=== PATIENT | male | born 1935 | race Caucasian/White ===

== ENCOUNTER 2016-07-09 11:34 | Inpatient (IN) | payer MEDICARE ==
[~2016-07-09] VITALS: Ht 176.5 cm; Wt 71.6 kg
[2016-07-09] VITALS (8 sets, daily range): BP systolic 95–127; BP diastolic 52–66; PULSE 62–80; RESP 16–20; O2SAT 92–96
[~2016-07-09 11:34] MED LIST: AMLO10TA3 PO; ASPI-973 PO; ATOR80TA77 PO; CALCIT PO; CHOL400T PO; CLOP75TA28 PO; FAMO20TA4 PO; MULT-1093 PO; NITR0.4T SL; NITR1PAT65 TRANSDERM; RANO500T3 PO; [UNRECOGNIZED DRUG - CODE] PO
--- NOTE | 2016-07-09 11:44 | ED.REPORT ---
HPI-Chest Pain 40 and Over Date of Service Jul 09, 2016 ED Provider: Michael Michaels MD Pt is an 80 y/o male w/ a hx of CAD s/p CABG, HTN, hyperlipidemia, cardiac, pulmonary, and renal amyloidosis, CLL in remission, presenting to the ED via EMS with his from [facility] with concern for STEMI. The patient had a stent placed in late May of last year and last night was experiencing some chest pain which was relieved mildly after 5 rounds of nitro. He experienced similar chest pain again this morning which did not resolve with nitro and decided to be seen at [facility]. The ER physician there noticed EKG abnormalities concerning for STEMI and elected to have him transferred here. Of note, the physician at [facility] did not have access to a more recent EKG for comparison which I was able to obtain that showed evidence of a LBBB which is similar to today's EKG. They were comparing to an EKG from 2009 and I was able to compare to a May 2016 EKG. The patient is asymptomatic and not experiencing any chest pain at time of interview. Nursing Notes Stated Complaint: STEMI Chief Complaint: Chest Pain Nursing Notes Reviewed: Yes Allergies: Uncoded Allergies: abalone (fish) (Allergy, Intermediate, Nausea,Vomiting,Diarrhea, 12/02/15) Scheduled Amlodipine (Amlodipine) 10 Mg Tablet 10 MG PO DAILY Aspirin (Aspirin) 81 Mg Tablet 81 MG PO DAILY Atorvastatin Calcium (Atorvastatin Calcium) 80 Mg Tablet 80 MG PO DAILY Calcium Citrate (Calcium Citrate) 250 Mg Tablet 250 MG PO BID Cholecalciferol (Vitamin D3) (Vitamin D3) 400 Unit Tablet 400 UNIT PO BID Clopidogrel (Clopidogrel) 75 Mg Tablet 75 MG PO DAILY Famotidine (Famotidine) 20 Mg Tablet 20 MG PO HS Magnesium Oxide (Uromag) 84.5 Mg Capsule 84.5 MG PO DAILY Multivitamin-Min/Iron/FA/Vit K (Multi-Day Plus Minerals Tablet) 18 Mg Iron-400 Mcg-25 Mcg Tablet 1 EACH PO DAILY Nitroglycerin 0.6 mg/hr Patch (Nitroglycerin 0.6 mg/hr Patch) 1 Each Patch 1 PATCH TRANSDERM DAILY Ranolazine ER (Ranexa) 500 Mg Tablet.er 500 MG PO BID Scheduled PRN Nitroglycerin SL (Nitrostat) 0.4 Mg Tab.subl 0.4 MG SL DIRECTED PRN PRN For Chest Pain General Time Seen by MD: 11:39 Chief Complaint Chest pain Hx Obtained From: Patient, Spouse, EMS Arrived By: Ambulance Sudden in Onset?: Yes Onset Occurred: 9 - 12 hours ago Symptom Duration: Intermittent Location: : Substernal Quality: Painful Severity: Current: No pain currently Severity: Maximum: Moderate Recent Healthcare: Recent testing, Previous diagnosis, Previous surgery, Prior workup Similar Sx Previous: Yes Risk Factors )( CAD Risk Stratification Hyperlipidemia Hypertension Known CADNo Amphetamine, No Cocaine, No Diabetes mellitus, No Smoking Risk factors reviewed Past Medical History Past Medical History CAD s/p CABG HTN Hyperlipidemia Cardiac, pulmonary, and renal amyloidosis CLL in remission Mild dementia Aortic stenosis TIA Hx DVT LLE s/p IVC filter Cataracts Denies: Diabetes mellitus Past Surgical History CABG IVC filter Back Cataracts Smoking History Never Smoker Social History Alcohol Use: Denies alcohol use Drug Use: Denies drug use Other Social History: Ambulatory Status Independent Review of Systems Constitutional: Denies: Chills, Fever Respiratory: Denies: Non-productive cough, Shortness of breath Cardiovascular: Reports: Chest pain, Denies: Edema GI: Denies: Abdominal pain, Diarrhea, Nausea, Vomiting Neurologic: Denies: Headache Complete sys rev & neg: except as marked. Physical Exam Initial Vital Signs Vital Signs (First) Date Time Temp Pulse Resp B/P Pulse Ox O2 Delivery O2 Flow Rate FiO2 07/09/16 11:36 36.7 71 16 105/56 95 Room Air Initial VS: Reviewed, Vital signs normal Head / Eyes: Atraumatic, Normocephalic, PERRL ENT: Mucous membranes moist, Conjunctiva normal, No scleral icterus Neck: Supple, Full range of motion Extremities: Vascular intact, Neuro intact, No swelling, No tenderness Skin: Warm, Dry, No cyanosis Neurologic: Alert, Oriented, Nonfocal Psychiatric: Mood/affect normal, Behavior normal, Normal thought content General/Constitutional: Awake, Alert, No acute distress, Well appearing, Cooperative, Not toxic appearing Respiratory / Chest: Atraumatic, Breath sounds NL, Breath sounds = bilat, No respiratory distress, No rales, No rhonchi, No wheezing, No retractions, No stridor, No chest tenderness, No chest wall deformity, No crepitus Cardiovascular: Heart rate NL, Regular rhythm, Heart sounds NL, No gallop, No murmurs, No rubs, Cap refill not delayed, Peripheral circulation NL Abdomen: Atraumatic, Soft, Non-tender, No guarding, No rebound, No distention, No palpable mass Interpretation & Diagnostics Lab Results Interpretation Test 07/09/16 11:12 Magnesium Level 1.8mg/dL (1.6-2.6) Troponin T < 0.010ug/L (0.0-0.011) Lab Results Interpretation: Labs from [facility] taken today: WBC: 4.3 HGB: 13.9 HCT: 41.1 MCV:93.4 Platelets: 136 Neutrophil %: 76.1 ABS neut #: 3300 Lymphocytes: 12.7% Monocytes: 9.9 Eosinophils: 0.8 Basophils: 0.5 Pro-time: 11.7 INR: 1.0 BNP: 517 Troponin T: 0.0100 Alk phosph: 132 Total bilirubin: 1.0 BUN: 25.0 Creatinine: 1.30 eGFR: 56.3 Calcium: 9.4 Glucose: 113 Total protein: 7.1 Albumin: 4.3 Globulin: 2.8 AST: 31 ALT: 27 Sodium: 140 Potassium: 4.0 Chloride: 101.0 CO2: 24.0 ECG Interpretation ECG Interpretation: Sinus arrhythmia rate 74 LBBB 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 No significant change in left basilar pleural-parenchymal opacity compared to 04/30/13, consistent with benign etiology. Dictated by Danni Alcala MD. View: Portable, 1 view Interpretation / Wet Read by: Interpret - Radiologist Re-Eval/Medical Decision Time of Eval: 12:37 Patient Status: Condition resolved, Complete relief, Pain resolved Re-Evaluation/Progress Note: Pt rechecked. Pt informed of need for admission for further evaluation. Pt understands and agrees with plan for admission. All questions addressed. Consultation #1: Referral / Consult Name: Pippa Perez MD Consulted With: Cardiology Call Returned at: 11:20 Drum Sprayer: Agrees with eval, Agrees with plan Note: After review of today's EKG and prior EKG, does not believe this to be a STEMI. Consultation #2: Referral / Consult Name: Perry López MD Consulted With: Cardiology Call Returned at: 12:38 Drum Sprayer: Will see patient, Agrees with eval, Agrees with plan Note: Case discussed. Recommends standard treatment. He will see the patient tomorrow. Consultation #3: Referral / Consult Name: Aldair Marr MD Consulted With: Hospitalist Call Returned at: 12:47 Drum Sprayer: Will see patient, Agrees with eval, Agrees with plan, Accepts admit Note: Case discussed. Counseled Regarding: Diagnosis, Lab results, Need for admission Discharge & Departure Primary Impression: Chest pain Chest pain type: unspecified Qualified Code: R07.9 - Chest pain, unspecified Additional Impression: Unstable angina Disposition: ADMITTED TO HOSPITAL Discharge Condition All VS Reviewed: Yes Condition: Stable Referrals: Surjit Duque MD (PCP) Crit Care Except Billable Proc Services Performed: Patient management by me, Time spent at bedside, Reviewing test results, Reviewing imaging, Discussing patient care, Documentation in record, Time with fam/surrogate Critical Care Notes: EKG/chart review and discussion with STEMI doc prior to patient's arrival. Heparin drip. [place] Attestation Portions of this note were transcribed by Lobito Beaulieu. I, Dr. Michaels personally performed the history, physical exam and medical decision-making; I reviewed and confirmed the accuracy of the information in the transcribed note. Signed by Jacki Drake, 07/09/16 - [id number] copies to: Surjit Duque MD, Kirk H MD Jul 09, 2016 11:44 LOBITO BEAULIEU Jul 09, 2016 11:55
[2016-07-09] MEDS ORDERED: Heparin 5,000 Unit/mL Inj IVPUSH PRN ×2 (11:50→14:25)
[2016-07-09] MEDS ORDERED: Heparin 25K Unit/500mL 0.45 NS 25,000 UNIT in IV Premix 1 EACH IV SCH ×2 (11:50→14:25)
[2016-07-09] MEDS ORDERED: Heparin 5,000 Unit/mL Inj IVPUSH ONE (11:50)
[2016-07-09 12:43] LABS: Magnesium 1.8 mg/dL (1.6-2.6)
[2016-07-09 12:44] LABS: TROPONIN T < 0.010 ug/L (0.0-0.011)
[2016-07-09] MEDS ORDERED: Alum-Mag Hydrox-Simeth 30 mL Suspension PO PRN ×2 (12:55→14:25)
[2016-07-09] MEDS ORDERED: Ondansetron 2 mg/mL 2 mL Inj IVPUSH PRN ×2 (12:55→14:25)
[2016-07-09] MEDS: Nitroglycerin 50 mg/250 mL D5W 50,000 MCG in IV Premix 1 EACH IV SCH (14:20)
[2016-07-09] MEDS ORDERED: Senna-Docusate 8.6-50 mg Tablet PO PRN (14:25)
[2016-07-09] MEDS ORDERED: Polyethylene Glycol (PEG) 17 Gm Powder PO PRN (14:25)
--- NOTE | 2016-07-09 15:23 | PCM.HPMED ---
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 The patient was transferred to [facility] ED due to concern about possible STEMI. The patient notes that he began having dull 6/10 substernal constant chest pain last night that was relieved by 5 rounds of nitroglycerin. However this morning his pain returned and would not improve with nitroglycerin. The patient has a pretty significant history of angina and has become somewhat nitroglycerin tolerant. The patient denies any shortness of breath, diaphoresis or radiation but he did note some nausea. The patient was started on a nitroglycerin drip and quickly became chest pain free and is currently not in any discomfort. His EKG at [facility] revealed LBBB which was thought to be new, however in reviewing more current EKGs from 2016 it is, in fact, old. The patient's cardiac history is complex and includes an acute inferior myocardial infarction in 2003 that was treated with thrombolytic therapy, angioplasty, and stenting to his right coronary artery. Subsequently in 2008 he again presented with recurrent anginal symptoms and subsequently underwent three-vessel coronary bypass graft surgery in [place] with an internal mammary bypass graft to the LAD and a radial artery graft to the obtuse marginal. Most recently on 06/07/16 the patient had a stent placed in the circumflex. In our ED the vitals were T 36.7 HR 71 BP 105/56 RR 16 O2 sat 95% on RA. Dr. Ramsey was contacted that did not believe the EKG changes were acute and did not reflect a STEMI. Dr. López was contacted as well by the ED physician and agrees to the see that patient tomorrow. Patient arrived to the floor with a nitroglycerin drip and heparin drip. PCP: Dr. Brown Review of Systems: A comprehensive review of systems was done and was negative except as noted above in the HPI. Allergies Coded Allergies: No Known Drug Allergies (Verified Allergy, Unknown, 07/10/16) Uncoded Allergies: ABALONE (Allergy, Mild, NAUSEA/VOMITING TO THIS FISH, 07/09/16) Home Medications Amlodipine (Amlodipine) 10 Mg Tablet 10 MG PO DAILY Aspirin (Aspirin) 81 Mg Tablet 81 MG PO DAILY Atorvastatin Calcium (Atorvastatin Calcium) 80 Mg Tablet 80 MG PO DAILY Calcium Citrate (Calcium Citrate) 250 Mg Tablet 250 MG PO BID Cholecalciferol (Vitamin D3) (Vitamin D3) 400 Unit Tablet 400 UNIT PO BID Clopidogrel (Clopidogrel) 75 Mg Tablet 75 MG PO DAILY Famotidine (Famotidine) 20 Mg Tablet 20 MG PO HS Magnesium Oxide (Uromag) 84.5 Mg Capsule 84.5 MG PO DAILY Multivitamin-Min/Iron/FA/Vit K (Multi-Day Plus Minerals Tablet) 18 Mg Iron-400 Mcg-25 Mcg Tablet 1 EACH PO DAILY Nitroglycerin 0.6 mg/hr Patch (Nitroglycerin 0.6 mg/hr Patch) 1 Each Patch 1 PATCH TRANSDERM DAILY Ranolazine ER (Ranexa) 500 Mg Tablet.er 500 MG PO BID As needed Nitroglycerin SL (Nitrostat) 0.4 Mg Tab.subl 0.4 MG SL DIRECTED PRN PRN For Chest Pain PMH CAD s/p 3 vessel CABG HTN Hyperlipidemia Cardiac, pulmonary, and renal amyloidosis CLL in remission Mild dementia Aortic stenosis TIA Hx DVT LLE s/p IVC filter Cataracts Surgical History CABG IVC filter placement Back surgery Cataract surgery Family History No family history of amyloidosis or heart disease. Mother had pancreatic cancer. Father had degenerative joint disease, hypertension Social History Hx Alcohol Use: No (Rare to none) Hx Substance Use: No Hx Tobacco Use: No Smoking Status: Never Smoker Additional Information Lives with his . Uses a walker sometimes. Exam Vital Signs Vital Sign - Last Date Time Temp Pulse Resp B/P Pulse Ox O2 Delivery O2 Flow Rate FiO2 07/09/16 13:19 70 07/09/16 13:09 36.6 19 113/63 96 Room Air Exam General: No acute distress, well developed, well nourished, appropriately interactive HEENT: Normocephalic, atraumatic. External ears without defect. Hearing aids in place. Pupils equal, round, and reactive to light and accommodation. Anicteric sclerae, moist conjunctivae, and no lid lag. Oropharynx free of erythema and cobble stoning with moist mucosa. Neck: Supple with full range of motion. No jugular venous distension. No bruits. No lymphadenopathy or thyromegaly. Cardiovascular: Regular rate and rhythm with no rubs, or gallops appreciated. A 2/5 holosystolic murmur is appreciated best at the left sternal border. Radial pulses intact bilaterally. Pulmonary: Clear to auscultation bilaterally with no crackles, wheezes, or rhonchi. Normal respiratory effort with no use of accessory muscles. Abdomen: Bowel tones present. Tympanic, distended, non-tender. No hepatosplenomegaly or masses appreciated but difficult to assess. Extremities: No clubbing, cyanosis, edema, or lymphadenopathy appreciated. Skin: Normal temperature, turgor, and texture; no rash, ulcers, or subcutaneous nodules appreciated. Neurological: Cranial nerves grossly intact. Normal muscle strength, tone, and bulk. Reflexes, coordination, and sensory function within normal limits. No known gait impairment. Psychiatric: Normal mood and affect. Alert and oriented to person, place, and time. Lab and Diagnostics Labs Laboratory Tests Test 07/09/16 11:12 Magnesium Level 1.8mg/dL (1.6-2.6) Troponin T < 0.010ug/L (0.0-0.011) Labs from [facility] taken today: WBC: 4.3 HGB: 13.9 HCT: 41.1 MCV:93.4 Platelets: 136 Neutrophil %: 76.1 ABS neut #: 3300 Lymphocytes: 12.7% Monocytes: 9.9 Eosinophils: 0.8 Basophils: 0.5 Pro-time: 11.7 INR: 1.0 BNP: 517 Troponin T: 0.0100 Alk phosph: 132 Total bilirubin: 1.0 BUN: 25.0 Creatinine: 1.30 eGFR: 56.3 Calcium: 9.4 Glucose: 113 Total protein: 7.1 Albumin: 4.3 Globulin: 2.8 AST: 31 ALT: 27 Sodium: 140 Potassium: 4.0 Chloride: 101.0 CO2: 24.0 Cardiac Echo Impressions Interpretation Summary Left ventricular systolic function is normal without focal wall motion abnormalities with the ejection fraction visually estimated to be 60-65%. The previously seen inferoposterior hypokinesis is no longer evident, and compared to the prior exam, left ventricular function is borderline improved. There is mild concentric left ventricular hypertrophy with an E/A wave ratio > 2.0 that could be indicative of reduced atrial contractility or increased preload, possibly higher compared to the previous study. Clinical correlation is necessary. The right ventricle is borderline dilated and right ventricular systolic function is borderline reduced but likely unchanged compared to the previous study. Pulmonary artery pressures cannot be estimated because of the lack of a measurable TR jet velocity but the IVC suggests a right atrial pressure of 8 mm Hg, which is likely higher compared to the previous study. The left atrium is severely dilated and the right atrium is mildly dilated. Both atria have mildly increased in size since the prior echo exam. There is moderate mitral regurgitation and mild tricuspid regurgitation that are both unchanged compared to the previous study. The aortic valve is moderately calcified with moderately reduced leaflet mobility and likely moderate to severe aortic stenosis. The peak aortic velocity is 3.2 m/sec with an aortic valve mean gradient of 26 mmHg which are somewhat higher compared to the previous study although visually there in no apparent change. The calculated aortic valve area is 0.8 cm2 with moderate aortic regurgitation that is unchanged compared to the previous study. 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 1. 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 López consulted by the ED and agrees to the patient tomorrow in AM -Continue heparin drip -Titrate down nitroglycerin drip -Patient just had an ECHO in May of 2016, so will not elect to repeat it unless requested so by cardiology -Will hold off on any stress testing -Continue home aspirin, statin, clopidogrel -Add low dose metoprolol -No ACEi due to borderline BP and no evidence of HFrEF -Will continue to trend cardiac enzymes -EKG in AM 2. Coronary artery disease, chronic, present on admission, active -As above 3. Cardiac, renal and pulmonary amyloidosis, chronic, present on admission, active -Patient is followed by Dr. Dawn in [facility] -Currently not under treatment 4. CLL in remission -Patient is followed by Dr. Dawn in [facility] -Currently not under treatment 5. Hypertension, chronic, present on admission, active -Hold amlodipine with borderline low blood pressures 6. Hyperlipidemia, chronic, present on admission, active -Statin as above 7. Mild dementia, chronic, present on admission, active -Fall risk, nursing to monitor 8. Aortic stenosis, chronic, present on admission, active -Not critical, outpatient follow up 9. History of left lower extremity DVT s/p IVC filter -Not anticoagulated CODE STATUS: DNR/DNI per discussion with patient's and the patient. Admitted to observation status with anticipated length of stay <2 midnights due to severity of the patient's symptoms and possibility for complication. Attending Statement The patient was seen and examined together with Dr. Apple on 07/09/2016 and I agree with the history, exam and plan as outlined in the note above. . copies to: Surjit Duque MD, Viktoriya DO Jul 09, 2016 15:23 Aldair Marr MD Jul 14, 2016 16:28
[2016-07-09] MEDS: Sodium Chloride LOK Flush 10 mL Syringe IVFLUSH SCH ×2 (16:30→23:29)
[2016-07-09] MEDS: Ranolazine ER 500 mg ER12 Tablet PO SCH ×2 (17:12→20:07)
--- NOTE | 2016-07-09 18:07 | CONS ---
[address] [address] CONSULTATION REPORT PATIENT: TRE VERA : 1935 MR#: [id number] ADMIT: 07/09/2016 JOB ID: [id number] DATE OF SERVICE: 07/09/2016 REASON FOR CONSULT: For the evaluation of chest pain. CHIEF COMPLAINT: Chest pain. PRESENT HISTORY: This 80-year-old, pleasant, male who has a complex cardiac history which includes three-vessel bypass surgery in July 2008 (STUART graft to LAD, in fact, it is a large diagonal branch, sequential radial graft to OM one and posterolateral branch, history of multiple PCI, history of recent drug-coated stent placement to mid circumflex) by Dr. Hayward on June 07, 2016, with patent STUART graft as well as radial graft and proximal right coronary artery stent, moderate aortic stenosis with calculated aortic valve area about 1.2 cm without any significant pulmonary hypertension, on the right side heart catheterization, LVEDP about 16 mmHg, history of cardiac, renal, pulmonary amyloidosis, history of chemotherapy in the past, history of CLL in remission, chronic recurrent nocturnal anginal pain, history of essential hypertension, hyperlipidemia, dementia, history of TIA, history of DVT, IVC filter in the left lower extremity, history of left bundle-branch block got admitted because of above-mentioned chief complaint. The patient was recently seen by his physicist cryogenics, Dr. Bailey, around last week. He used to take Ranexa for anginal pain. It was advised him to decrease the Ranexa. He started taking from 500 mg twice a day to 500 mg daily. After recent stent placement, he was almost chest pain-free for a week, but then he started having chest pain again. Usually, he gets nocturnal pain which has been happening for many years. He has been given PPI in the past as well. He takes nitroglycerin almost every day in the nighttime and it was unusually successful, but yesterday when he had the pain he has to take five nitroglycerin. Then, he fell into sleep. It was retrosternal pressure-type discomfort. He did not have any radiation. No significant nausea, vomiting, sweating. This morning, again he had similar pain. He took nitroglycerin which did not help. Hence, decided to be seen in the hospital. He was evaluated at [facility]. They did the EKG and had left bundle-branch block. They thought the left bundle-branch block is new, hence, he was transferred to our facility with possibility of ST-elevation myocardial infarction, however, in the ED determined that his left bundle-branch block is old. He was on nitroglycerin drip. His chest pain subsided. At present, he is on 5 mcg nitroglycerin. He is chest pain-free. At present, denies any fever, cough, expectoration, stroke-like symptoms, PND orthopnea. Denies any groin bleed. On June 07, 2016, the patient underwent right and left heart catheterization as his stress test was abnormal and he was having recurrent anginal pain. On left heart catheterization, his STUART graft to LAD and sequential radial graft was patent. Proximal RCA stent was patent. There was about 80% disease in the circumflex obtuse marginal branch which got stented with 3.5 x 12 mm Xience drug-coated stent. Calculated aortic valve area was about 1.2 cm2. LVEDP was about 16 mmHg. Pulmonary artery systolic pressure was about 33 mmHg. Cardiac index 2.5 L and cardiac output 4.6 L/minute. He had an echocardiogram on May 31, 2016. At that time, LV ejection fraction was 60% to 65%. Right ventricular function was borderline reduced. There was [id number] mild tricuspid regurgitation. Peak aortic valve velocity 3.2 m/sec and mean gradient about 26 mmHg. PAST MEDICAL HISTORY: CAD details, as stated above, history of moderate aortic stenosis, essential hypertension, hyperlipidemia, cardiac pulmonary diseases and amyloidosis, CLL in remission, dementia, moderate aortic stenosis, history of DVT status post IVC filter in the left lower extremity, cataracts. In his history it was mentioned that he has paroxysmal atrial fibrillation and used to be on warfarin, but lately he is not on anticoagulation. I do not have the details at present. PAST SURGICAL HISTORY: As stated above. ALLERGIES: As per the medical records. HOME MEDICATIONS: 1. Amlodipine 10 mg daily. 2. Ranexa 500 mg daily. 3. Aspirin 81 mg daily. 4. Plavix 75 mg daily. 5. Atorvastatin 80 mg daily. 6. Calcium. 7. Magnesium. 8. Multivitamins. SOCIAL HISTORY: Denies any current tobacco abuse or alcohol abuse. FAMILY HISTORY: Positive for hypertension, degenerative joint disease, pancreatic cancer. REVIEW OF SYSTEMS: A 10 point review of systems were obtained and they are negative except as stated above. PHYSICAL EXAMINATION: Blood pressure 113/63, respiratory rate 19, pulse 69, oxygen saturation 96%. HEENT: No significant anemia, jaundice. Neck: No apparent JVP. I do not appreciate any significant carotid bruit other than radiation of aortic stenosis murmur towards left carotid. Chest: Decreased air entry with some basilar crepitations on the right side. CVS: Clinically S1 normal, P2 paradoxically split. No S3, no S4. Grade 2 to 3/6 ejection systolic murmur at the base. Abdomen: No obvious pulsatile mass felt. It is not tender. Extremities: No significant pedal edema. Vascular: No evidence of critical limb ischemia. CARBOY FILLER: At present, he is alert and oriented to time, place, and person, however, has dementia as well. Able to move all the four extremities. EKG revealed sinus rhythm with underlying left bundle-branch block which is old without any new significant ST-T changes and first-degree AV block which is old. QTc 479 msec. His magnesium 1.8. Troponin less than 0.010. At [facility], hemoglobin 13.9, platelets 136, troponin T 0.010. BUN 25, creatinine 1.3. AST, ALT normal. Sodium 140, potassium 4.0, BNP 517, INR 1.0. ASSESSMENT AND PLAN: Episode of chest pain with anginal components. The patient has history of chronic intermittent angina for many years. Recently, he underwent left circumflex artery stenting by Dr. Hayward on June 07, 2016. Mostly, his angina is nocturnal. There is an element of microvascular angina on top of epicardial coronary artery disease. The patient may have subendocardial ischemia angina due to moderate aortic stenosis as well as diastolic dysfunction due to cardiac amyloidosis. His two sets of troponin normal. He has an old left bundle-branch block. Clinically, at present he appears compensated. He is chest pain-free. At this point of time, will recommend continuation of heparin and get serial CPK, troponin. We will continue aspirin, Plavix, high intensity statin, optimize beta brooklynn. He used to take Ranexa 500 mg twice a day which has been decreased. I will put him back on Ranexa 500 mg twice a day. If blood pressure permits, consider a calcium channel brooklynn which he was taking at home. Slowly wean him off from nitroglycerin drip. Once he is off nitroglycerin drip, consider long-acting nitroglycerin. We will repeat echocardiogram. If there is no significant new wall motion abnormalities, then one of the options is to treat him with medical management. It is reasonable to consider perfusion study as well. Tomorrow my associate, Dr. Boyce, will be available to see the patient. Thanks for the cardiology consult. Discussed the plan with the patient. TOTAL TIME SPENT: About 80 minutes reviewing his old charts as well. TOMAS
[2016-07-09 19:02] LABS: Creatine Kinase 57 U/L (21-232); Magnesium 1.9 mg/dL (1.6-2.6)
[2016-07-09 19:22] LABS: TROPONIN T 0.039 ug/L (0.0-0.011)
[2016-07-10] VITALS (33 sets, daily range): BP systolic 91–129; BP diastolic 42–76; PULSE 55–80; RESP 16–20; O2SAT 92–96
[2016-07-10 03:49] LABS: APPEARANCE,URINE CLEAR (CLEAR,HAZY); COLOR,URINE YELLOW (YELLOW); OCCULT BLOOD,URINE SMALL (NEGATIVE); PH,URINE 5.5 (5.0-8.0); UROBILINOGEN,URINE NORMAL (NORMAL)
[2016-07-10 06:02] LABS: BASOPHILS % (AUTO) 0 % (0-3); EOSINOPHILS % (AUTO) 1.3 % (0-5); MONOCYTES % (AUTO) 9.6 % (4-12); Mean Corpuscular Hemoglobin 32.1 pg (27.0-35.0); Mean Corpuscular Volume 93.5 fL (81-100); Platelet Count 127 bil/L (150-400)
[2016-07-10 06:30] LABS: Creatine Kinase 58 U/L (21-232)
[2016-07-10 06:46] LABS: TROPONIN T 0.058 ug/L (0.0-0.011)
[2016-07-10] MEDS: Sodium Chloride LOK Flush 10 mL Syringe IVFLUSH SCH ×2 (08:16→16:30)
[2016-07-10] MEDS: Ranolazine ER 500 mg ER12 Tablet PO SCH ×2 (08:17→23:36)
[2016-07-10] MEDS ORDERED: ACET500C11 PO (10:01)
[2016-07-10] MEDS: Nitroglycerin 50 mg/250 mL D5W 50,000 MCG in IV Premix 1 EACH IV SCH (14:20)
--- NOTE | 2016-07-10 14:37 | DRSVH ---
Merged With [facility] [address] [place] [address] Echocardiogram Report Name: TRE VERA EStudy Date : 07/10/2016 Height: 69 in Hospital Exam Location: [facility] Weight: 159 lb Gender: Male BSA: 1.9 m2 : 1935 Age: 80 yrs BP: 112/76 mmHg Reason For Study: CHEST PAIN Ordering Physician: Perry López Performed By: Maureen Stephens Referring Physician: DR. SOSA, DR. Catalino FRASER, [facility] Interpretation Summary 1. Normal left ventricular size with moderately increased wall thickness and overall preserved LV systolic function. 2. Normal right ventricular size with low normal systolic function Procedure: This is a limited echocardiogram to evaluate ventricular function. The study quality was technically good. Comparison is made with the echocardiogram of 05-31-2016. The patient was in a bradycardic rhythm during the exam. The heart rate ranged between 55-60 bpm during the study. Left Ventricle: The left ventricle is normal in size. Left ventricular wall thickness is moderately increased. The ejection fraction is estimated to be 55-60%. Possible hypokinesis of the mid inferolateral wall. Right Ventricle: The right ventricle is normal size. Right ventricular systolic function is borderline reduced. Mitral Valve: Not assessed. Pericardium/ Pleura There is no pericardial effusion. MMode/2D Measurements & Calculations LVIDd EDV(MOD-sp2) LV palafox. diameter/BSA LV sys. diameter/BSA : 4.5 cm : 105.5 ml (cm/m^2): 2.4 (cm/m^2): 1.7 LVIDs : 3.2 cm FS: 29.2 % IVSd : 1.cm LVPWd : 1.4 cm Doppler Measurements & Calculations MV E max anjana MV E/A MV V2 mean MV P1/2t max anjana : 120.3 cm/sec : 1.9 : 63.4 cm/sec MV A max anjana MV mean PG : 64.0 cm/sec MVA(P1/2t): 1.9 cm2 MV P1/2t: 115.4 msec MV V2 VTI: 40.3 cm Reading Physician:02:36 PM
[2016-07-10] MEDS ORDERED: Furosemide 10 mg/mL 2 mL Inj ONE (15:55)
[2016-07-10 15:57] LABS: TROPONIN T 0.04 ug/L (0.0-0.011)
[2016-07-10] MEDS ORDERED: Heparin 1,000 Unit/mL 10 mL Inj ONE ×2 (15:57→16:13)
[2016-07-10] MEDS ORDERED: Heparin 5,000 Units/500 mL NS Premix IV ONE (15:57)
[2016-07-10] MEDS ORDERED: Heparin 1,000 Units/500 mL NS Premix IV ONE ×2 (15:57→17:12)
[2016-07-10] MEDS ORDERED: 0.9% Sodium Chloride 1,000 ML ONE (16:10)
[2016-07-10] MEDS ORDERED: Nitroglycerin 50,000 mcg/250 mL D5W Premix IV ONE (16:13)
[2016-07-10] MEDS ORDERED: fentaNYL-PF 50 mCg/mL 2 mL Inj ONE (16:17)
--- NOTE | 2016-07-10 16:29 | PROG NOTE ---
[address] [address] PROGRESS NOTE PATIENT: TRE VERA : 1935 MR#: [id number] ADMIT: 07/09/2016 JOB ID: [id number] DATE: 07/10/2016 CHIEF COMPLAINT: The patient came with chest pain. He now has mildly elevated troponins. HISTORY OF PRESENT ILLNESS: The patient is an 80-year-old man who has a history of coronary bypass grafting. He came in after an abnormal stress test in May of this year, had a stent placed into the [place] circumflex artery. He said that he has had problems with ongoing angina for a number of years but after stent placement for about a week he felt better where he did not have to use nitroglycerin, nitro tabs or patches. However, that was short-lived. More recently, he has had to go back to using his nitro tabs as well as patches. With this current admission, he developed chest discomfort that got fairly severe, did not get reduced with nitroglycerin and actually made him feel some nausea. Because of this, he went to the ED. In the ED, he had negative troponin. His EKG shows left bundle branch back so no definitive EKG changes could be called. He is now on nitroglycerin drip which has been up titrated given chest heaviness, and he has also had to be given morphine for an episode of chest discomfort. At this time he feels much better. He says he feels somewhat weak almost like he has the flu. He denies chest heaviness, increased shortness of breath, orthopnea, PND, lower extremity edema. PAST MEDICAL HISTORY/PROBLEM LIST: 1. History of coronary disease. 2. History of moderate aortic stenosis. 3. History of amyloid which has been treated with chemotherapy and he is being considered for further consultation at the [facility]. HOME MEDICATIONS: 1. Amlodipine. 2. Ranexa. 3. Aspirin. 4. Plavix. 5. Atorvastatin. 6. Magnesium. 7. Vitamins. SOCIAL HISTORY: No alcohol. No tobacco use. FAMILY HISTORY: Positive for hypertension and degenerative joint disease. REVIEW OF SYSTEMS: Overall health: He feels weak. No fevers or chills. GI: No problems with ulcers or blood in his stool. : No dysuria, hematuria. Pulmonary: No increased shortness of breath. Cardiac: As per HPI. ENT: No sore throat. No difficulty swelling. Ophtho: No vision changes. Derm: No rash or skin breakdown. Heme: No easy bruising or bleeding. Is followed for amyloid. Endocrine: No heat or cold intolerance. Psych: No acute issues. Rheumatologic: No joint pain or joint swelling. All other review of systems of a 12 point review of system are negative. PHYSICAL EXAMINATION: Blood pressure is 104/42. He is afebrile. Sats are 92% on 2 L. General: In no acute distress. Speaking in full sentences without apparent shortness of breath. Head and neck exam: Normocephalic, atraumatic. Vascular: Carotids without obvious bruits appreciated, 2+ PT pulses appreciated. Heart exam: Regular rate and rhythm. Lungs sound clear anteriorly. Back: No CVA tenderness to palpation. Abdomen is soft. It is nontender. Extremities are warm. I do not appreciate edema. 2+ PT pulses appreciated. Skin without breakdown appreciated. Neurologic: Gait is not tested. Psych: Appropriate mood and affect. Ophtho: Vision is grossly normal. ENT: No sore throat. No erythema of the throat. Mucous membranes are moist. LABORATORIES: Show white count 6.3, H and H 11.3 and 34.4, platelets 127,000. Chemistry shows sodium 138, potassium 4.5, chloride and bicarb 101 and 22 respectively, BUN and creatinine 27 and 1.3. Troponins have trended up to 0.058. CK and CK-MB is not elevated. CURRENT MEDICATIONS: In hospital include: 1. Ranexa 500 b.i.d. 2. Metoprolol 25 b.i.d. 3. Plavix 75 daily. 4. Aspirin 81 mg a day. 5. Heparin drip. 6. Lipitor 40 q.h.s. LABORATORY AND DIAGNOSTIC STUDIES: EKG shows left bundle-branch block. Other imaging: None at this time. IMPRESSION: The patient has had recurrent chest discomfort which does sound anginal in quality. Apparently he did well for about a week after stent placement in May but had gone back to his other medications for treatment of angina. PLAN: 1. He is scheduled to get a follow-up echocardiogram to see if he has any focal wall motion abnormalities. Continue with the troponins. Continue with heparin and nitroglycerin at this juncture. 2. Should he continue to have chest discomfort, have new wall motion abnormalities, any concerning findings especially in light of the fact he is a high-risk patient with a recent stent, he may require repeat cardiac catheterization. TIME SPENT: I spent 45 minutes visiting with the patient reviewing his old notes, reviewing cath films, revealing old echocardiograms and speaking with the patient about my plans. TOMAS
--- NOTE | 2016-07-10 17:39 | PCM.PNMED ---
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 The patient was transferred to [facility] ED due to concern about possible STEMI. Currently being treated for NSTEMI. Hospital Day 2. Overnight: Patient continued to have chest pain. He continues on nitroglycerin drip and heparin drip. Today: Patient continues to feel worse. Nitroglycerin drip has helped chest pain. Heparin drip continues. Cardiology plans to complete cardiac catheterization later today. Exam Vital Signs Vital Sign - Last Date Time Temp Pulse Resp B/P Pulse Ox O2 Delivery O2 Flow Rate FiO2 07/10/16 15:45 Supplement Oxygen 07/10/16 12:16 37.3 55 18 98/54 94 2.00 Intake and Output 07/09/16 07/09/16 07/10/16 Cumulative From/Thru 15:00 23:00 07:00 07/09/16 11:36 - 07/10/16 06:06 Intake Total 1019 ml 646 ml 1665 ml Output Total 400 ml 500 ml 900 ml Balance 619 ml 146 ml 765 ml Intake Oral 600 ml 300 ml 900 ml IV Total 419 ml 346 ml 765 ml Output Urine Total 400 ml 500 ml 900 ml Exam General: No acute distress, well developed, well nourished, appropriately interactive HEENT: Normocephalic, atraumatic. External ears without defect. Hearing aids in place. Pupils equal, round, and reactive to light and accommodation. Anicteric sclerae, moist conjunctivae, and no lid lag. Oropharynx free of erythema and cobble stoning with moist mucosa. Neck: Supple with full range of motion. No jugular venous distension. No bruits. No lymphadenopathy or thyromegaly. Cardiovascular: Regular rate and rhythm with no rubs, or gallops appreciated. A 2/5 holosystolic murmur is appreciated best at the left sternal border. Radial pulses intact bilaterally. Pulmonary: Clear to auscultation bilaterally with no crackles, wheezes, or rhonchi. Normal respiratory effort with no use of accessory muscles. Abdomen: Bowel tones present. Tympanic, distended, non-tender. No hepatosplenomegaly or masses appreciated but difficult to assess. Extremities: No clubbing, cyanosis, edema, or lymphadenopathy appreciated. Skin: Normal temperature, turgor, and texture; no rash, ulcers, or subcutaneous nodules appreciated. Neurological: Cranial nerves grossly intact. Normal muscle strength, tone, and bulk. Reflexes, coordination, and sensory function within normal limits. No known gait impairment. Psychiatric: Normal mood and affect. Alert and oriented to person, place, and time. Lab and Diagnostics Result Diagram: 07/10/16 0535 07/10/16 1432 Cardiac Echo Impressions Echocardiogram Report Interpretation Summary 1. Normal left ventricular size with moderately increased wall thickness and overall preserved LV systolic function. 2. 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 The patient was transferred to [facility] ED due to concern about possible STEMI. Currently being treated for NSTEMI. Hospital Day 2. 1. NSTEMI, present on admission, active. -In the setting of a complex cardiac history including cardiac amyloid and significant CAD s/p multiple stents and 3-vessel CABG 8 years ago -The patient just had an angiography which resulted in a new stent placement in the circumflex about one month ago and patient has been compliant with his medications as per his , which argues against a stent occlusion -Heparin drip continued. -Nitroglycerin drip continued. -Repeat echo unchanged from prior in May 2016. -Aspirin 81 mg daily. -Clopidogrel 75 mg daily. -Atorvastatin 40 mg daily. -Metoprolol tartrate 25 mg twice a day. -No ACEi due to borderline BP and no evidence of HFrEF -Patient taken for cardiac catheterization this evening. Awaiting results. 2. Coronary artery disease, chronic, present on admission, active. -Workup and treatment as above. 3. Cardiac, renal and pulmonary amyloidosis, chronic, present on admission, active. -Patient is followed by Dr. Dawn in [place] -Currently not under treatment 4. CLL in remission, as on admission, chronic. -Patient is followed by Dr. Dawn in [place] -Currently not under treatment 5. Hypertension, chronic, present on admission, active -Hold amlodipine with borderline low blood pressures. 6. Hyperlipidemia, chronic, present on admission, active -Statin as above. 7. Mild dementia, chronic, present on admission, active -Fall risk, nursing to monitor. 8. Aortic stenosis, chronic, present on admission, active -Not critical, outpatient follow up. 9. 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 Disposition: Patient currently having cardiac catheterization. Awaiting results discharge pending further intervention or treatment. Pain Evaluation: Adequate Pain Control GI Prophylaxis: Not indicated VTE Prophylaxis: Other (heparin drip) Resuscitation Status: DNR/DNI:Do Not Resuscitate/Intubate Attending Statement patient seen and examined with Dr Olivarez .I agree with the history,exam, impression and plan as outlined above NINA OLIVAREZ DO Jul 10, 2016 17:39 Sunday Go MD Jul 10, 2016 18:20
[2016-07-10] MEDS ORDERED: Ondansetron 2 mg/mL 2 mL Inj IVPUSH PRN (20:20)
[2016-07-10] MEDS ORDERED: Sodium Chloride LOK Flush 10 mL Syringe IVFLUSH PRN (20:20)
[2016-07-10] MEDS ORDERED: 0.9% Sodium Chloride 400 ML (4 HRS) IV ONE (20:20)
[2016-07-10] MEDS ORDERED: Atropine 1 mg/10 mL (Code) Syringe IVPUSH PRN (20:20)
[2016-07-10] MEDS ORDERED: 0.9% Sodium Chloride 250 ML BOLUS IV PRN (20:20)
[2016-07-10] MEDS: HYDROcodone-APAP 5-325 mg Tablet PO PRN (20:32)
--- NOTE | 2016-07-10 23:56 | CS94 ---
[address] [address] DIAGNOSTIC CARDIAC CATHETERIZATION PATIENT: TRE VERA : 1935 MR#: [id number] ADMIT: 07/09/2016 JOB ID: [id number] SERVICE DATE: 07/10/2016 PROCEDURES PERFORMED: 1. [place] coronary angiography. 2. Graft angiography. 3. Intravascular ultrasound of the left circumflex artery in an area of stenting. PROCEDURE INDICATIONS: This is a gentleman with history of stenting at the end of May, with only one week of relief, now with progressive symptoms and elevated troponins consistent with unstable angina. He presents for further assessment by cardiac catheterization. DESCRIPTION OF PROCEDURE: Informed consent was obtained. Patient was brought to canvas shop laborer. Bilateral groins were prepped and draped in sterile fashion. The area over the right femoral artery was anesthetized with lidocaine and using modified Seldinger technique and a micropuncture kit access was obtained and a 5-Moroccan sheath was advanced. Next, a 5-Moroccan JL-4 catheter was advanced over a wire and used to cannulate the left coronary artery. Angiographic views obtained. This catheter was removed over a wire and a 5-Moroccan JR-4 catheter was advanced over a wire and used to cannulate the right coronary. Angiographic views obtained. This catheter was also used to cannulate the graft to the obtuse marginal branch. This catheter was then pulled up into the subclavian artery. An exchange length J-tip wire was used to bring a 5-Moroccan GOLDEN catheter, which cannulated the STUART to left anterior descending artery. Angiographic views obtained. After reviewing the angiographic views in many views the circumflex stent appeared quite good. In the MONGOLIAN caudal view, however, there was evidence of a filling defect at the side of the stent, at the site that was felt to be stenosis to be treated back in May 2016. Given this finding, preparations were made to assess the vessel by IVUS. The 5-Moroccan sheath was exchanged out for a 6-Moroccan sheath. Next, heparin bolus was given. ACT was checked to make sure it was therapeutic. A eZonowater wire was advanced into the distal vessel with ease. IVUS was advanced distal to the area of stenting. A pullback into the area of stenting was performed. In the mid segment of stenting (a 3.5 mm stent), the stent was not well expanded, it ranged in the range of 2.5-2.9. The more proximal area of stenting appeared to be well dilated at 3.5 mm. Given that this represented approximately no more than 40% to 50% stenosis of the area (and thus would not be flow limiting) and it did not appear to have unstable findings, the wire was removed and plans were made for conservative management at this juncture. The sheath was sutured into place with plans for removal at a later time. There are no complications. FINDINGS: Coronaries: 1. Left main, minor luminal irregularities. 2. Circumflex artery, the vessel-gives rise to a ramus intermedius versus 1st obtuse marginal branch which appears free of obstructive disease. A 2nd obtuse marginal branch has competitive filling evidence from a graft. The circumflex artery continues down in the area of stenting. In only isolated views evidence for calcified plaque is seen in the area adjacent to the stent. It is not clear if this was in the stent or outside of the stent. As noted, IVUS was performed, and this revealed that this was outside of the stent and the stent was suboptimally deployed in this area of interest. No significant in-stent restenosis was appreciated, however. 3. Left anterior descending artery. This vessel has evidence of a stenosis prior to the touchdown of the STUART to LAD which shows good competitive filling. The vessel distal to the area of the touchdown appears free of obstructive disease. 4. Right coronary artery. This vessel appears to have evidence of prior stenting. Flow appears good. No evidence of significant in-stent restenosis. 5. Saphenous graft to obtuse marginal branch. This is widely patent with some evidence of competitive filling retrograde to the circumflex artery. 6. STUART to left anterior descending artery. This is widely patent. No evidence for anastomotic, nor post anastomotic stenoses. HEMODYNAMICS: Aortic pressure 110/46, heart rates in the 60s. MEDICATIONS: Given in the case: Please see canvas shop laborer report. IMPRESSION: 1. Widely patent graft to the obtuse marginal branch and left anterior descending artery. 2. Evidence for a patent stent in the circumflex artery, however, evidence for external plaque that appears calcified and prevented adequate expansion of the stent in the area of concern that was treated back in May 2016, however, by IVUS the relative stenosis still spaulding not appear significant enough to be causing his progressive symptoms. However, this is a risk factor for future in stent restenosis (thus he will continue with ASA and plavix) TOMAS
[2016-07-11] VITALS (17 sets, daily range): BP systolic 94–123; BP diastolic 49–68; PULSE 57–85; RESP 16–24; O2SAT 90–94
[2016-07-11] MEDS: Sodium Chloride LOK Flush 10 mL Syringe IVFLUSH SCH ×4 (00:50→16:40)
[2016-07-11] MEDS: HYDROcodone-APAP 5-325 mg Tablet PO PRN ×3 (01:35→20:21)
[2016-07-11 03:46] LABS: Mean Corpuscular Hemoglobin 31.6 pg (27.0-35.0); Mean Corpuscular Volume 94.4 fL (81-100)
[2016-07-11] MEDS ORDERED: Furosemide 10 mg/mL 2 mL Inj IVPUSH ONE ×2 (04:00→16:25)
[2016-07-11 04:57] LABS: Magnesium 1.8 mg/dL (1.6-2.6)
[2016-07-11] MEDS: Ranolazine ER 500 mg ER12 Tablet PO SCH ×2 (09:07→20:16)
[2016-07-11] MEDS ORDERED: Furosemide 10 mg/mL 2 mL Inj IV ONE (09:40)
--- NOTE | 2016-07-11 11:24 | PCM.PNMED ---
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 The patient was transferred to [facility] ED due to concern about possible STEMI. Currently being treated for NSTEMI. Hospital Day 3. Overnight: Cardiac catheterization completed yesterday evening. Dr. Boyce stated that graft was widely patent to the obtuse marginal branch and left anterior descending artery. No new lesions. Heparin drip was turned off after procedure. Nitroglycerin drip continued but was titrated down overnight. Today: Patient continues to complain of shortness of breath and chest tightness. Relieved by nitroglycerin. Blood pressures tenuous but improved with decreased nitroglycerin. Denies fever, chills, nausea, vomiting, abdominal pain, dysuria, or diarrhea. Remaining review of systems negative. Exam Vital Signs Vital Sign - Last Date Time Temp Pulse Resp B/P Pulse Ox O2 Delivery O2 Flow Rate FiO2 07/11/16 09:00 Supplement Oxygen 07/11/16 09:00 36.8 65 114/62 94 9.00 07/11/16 04:00 20 Intake and Output 07/10/16 07/10/16 07/11/16 Cumulative From/Thru 15:00 23:00 07:00 07/09/16 11:36 - 07/11/16 05:47 Intake Total 300 ml 742 ml 2707 ml Output Total 750 ml 900 ml 2550 ml Balance -450 ml -158 ml 157 ml Intake Oral 300 ml 200 ml 1400 ml IV Total 542 ml 1307 ml Output Urine Total 750 ml 900 ml 2550 ml # Bowel Movements 0 0 Exam General: No acute distress, well developed, well nourished, appropriately interactive HEENT: Normocephalic, atraumatic. External ears without defect. Hearing aids in place. Pupils equal, round, and reactive to light and accommodation. Anicteric sclerae, moist conjunctivae, and no lid lag. Oropharynx free of erythema and cobble stoning with moist mucosa. Neck: Supple with full range of motion. No jugular venous distension. No bruits. No lymphadenopathy or thyromegaly. Cardiovascular: Regular rate and rhythm with no rubs, or gallops appreciated. A 2/5 holosystolic murmur is appreciated best at the left sternal border. Radial pulses intact bilaterally. Pulmonary: Clear to auscultation bilaterally with no crackles, wheezes, or rhonchi. Normal respiratory effort with no use of accessory muscles. Abdomen: Bowel tones present. Tympanic, distended, non-tender. No hepatosplenomegaly or masses appreciated but difficult to assess. Extremities: No clubbing, cyanosis, edema, or lymphadenopathy appreciated. Skin: Normal temperature, turgor, and texture; no rash, ulcers, or subcutaneous nodules appreciated. Neurological: Cranial nerves grossly intact. Normal muscle strength, tone, and bulk. Reflexes, coordination, and sensory function within normal limits. No known gait impairment. Psychiatric: Normal mood and affect. Alert and oriented to person, place, and time. IVs and Medications Medications Reviewed: Medications were reviewed in detail Lab and Diagnostics Result Diagram: 07/11/16 0255 07/11/16 0255 Cardiac Echo Impressions Echocardiogram Report Interpretation Summary 1. Normal left ventricular size with moderately increased wall thickness and overall preserved LV systolic function. 2. Normal right ventricular size with low normal systolic function Reading Physician:02:36 PM Additional Diagnostics Angiogram FINDINGS: Coronaries: 1. Left main, minor luminal irregularities. 2. Circumflex artery, the vessel-gives rise to a ramus intermedius versus 1st obtuse marginal branch which appears free of obstructive disease. A 2nd obtuse marginal branch has competitive filling evidence from a graft. The circumflex artery continues down in the area of stenting. In only isolated views evidence for calcified plaque is seen in the area adjacent to the stent. It is not clear if this was in the stent or outside of the stent. As noted, IVUS was performed, and this revealed that this was outside of the stent and the stent was suboptimally deployed in this area of interest. No significant in-stent restenosis was appreciated, however. 3. Left anterior descending artery. This vessel has evidence of a stenosis prior to the touchdown of the STUART to LAD which shows good competitive filling. The vessel distal to the area of the touchdown appears free of obstructive disease. 4. Right coronary artery. This vessel appears to have evidence of prior stenting. Flow appears good. No evidence of significant in-stent restenosis. 5. Saphenous graft to obtuse marginal branch. This is widely patent with some evidence of competitive filling retrograde to the circumflex artery. 6. STUART to left anterior descending artery. This is widely patent. No evidence for anastomotic, nor post anastomotic stenoses. HEMODYNAMICS: Aortic pressure 110/46, heart rates in the 60s. MEDICATIONS: Given in the case: Please see starch factory laborer report. IMPRESSION: 1. Widely patent graft to the obtuse marginal branch and left anterior descending artery. 2. Evidence for a patent stent in the circumflex artery, however, evidence for external plaque that appears calcified and prevented adequate expansion of the stent in the area of concern that was treated back in May 2016, however, by IVUS the relative stenosis still appears to be not significant enough to be causing his progressive symptoms. 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 The patient was transferred to [facility] ED due to concern about possible STEMI. Currently being treated for NSTEMI. Hospital Day 3. 1. NSTEMI, present on admission, active. -In the setting of a complex cardiac history including cardiac amyloid and significant CAD s/p multiple stents and 3-vessel CABG 8 years ago -The patient just had an angiography which resulted in a new stent placement in the circumflex about one month ago and patient has been compliant with his medications as per his , which argues against a stent occlusion -Heparin drip discontinued. -Nitroglycerin drip continued but being titrated down. -Repeat echo unchanged from prior in May 2016. -Aspirin 81 mg daily. -Clopidogrel 75 mg daily. -Atorvastatin 40 mg daily. -Metoprolol tartrate 25 mg twice a day. -Ranolazine 500 mg twice a day. -No ACEi due to borderline BP and no evidence of HFrEF -Cardiac catheterization completed on 07/[address] Boyce that revealed patent stents and no new lesions. -Cardiology following. Appreciate time and recommendations. 2. Coronary artery disease, chronic, present on admission, active. -Workup and treatment as above. 3. Cardiac, renal and pulmonary amyloidosis, chronic, present on admission, active. -Patient is followed by Dr. Dawn in [facility] -Currently not under treatment 4. CLL in remission, as on admission, chronic. -Patient is followed by Dr. Dawn in [facility] -Currently not under treatment 5. Hypertension, chronic, present on admission, active -Hold amlodipine with borderline low blood pressures. 6. Hyperlipidemia, chronic, present on admission, active -Statin as above. 7. Mild dementia, chronic, present on admission, active -Fall risk, nursing to monitor. 8. Aortic stenosis, chronic, present on admission, active -Not critical, outpatient follow up. 9. 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 Per Dr. Boyce patient may walk in the hallways even with nitroglycerin drip running. Disposition: Patient continues with chest pain and shortness of breath. Cardiology optimizing medications. Discharge pending optimization. GI Prophylaxis: Not indicated VTE Prophylaxis: Other (heparin drip) Resuscitation Status: DNR/DNI:Do Not Resuscitate/Intubate Attending Statement patient seen and examined with Dr Olivarez ,I agree with history,exam ,assessment and plan as outlined above . NINA OLIVAREZ DO Jul 11, 2016 11:24 Sunday Go MD Jul 11, 2016 15:38
--- NOTE | 2016-07-11 12:38 | DRSVH ---
PROCEDURE: X-RAY CHEST ONE VIEW, PORTABLE ([id number]) INDICATIONS: shortnes of breath TECHNIQUE: One view of the chest was acquired. COMPARISON: [facility], CR, XR CHEST 2VW, 12/02/2015, 13:05. FINDINGS: Surgical changes and devices: Sternotomy wires, presumed prior CABG. Lungs and pleura: No pleural effusions or pneumothorax. Lungs are abnormal with bibasilar alveolar infiltration as was previously the case, left greater than right, with scarring at the left lung base . There now also is mild alveolar infiltration in the right upper lung Mediastinum: Mediastinal contours appear normal. Heart size is normal. Bones and chest wall: No suspicious bony lesions. Overlying soft tissues appear unremarkable. IMPRESSION: Prior CABG. Chronic scarring left lung base. Right upper and lower lung pneumonia patte rn is chronic distortion of the left mid and lower lung due to scarring is present and obscures visua lization to the degree that definite underlying left lower lung pneumonia cannot be diagnosed. Dictated by: Herb Acosta M.D. on 07/11/2016 at 12:34 Approved by: Herb Acosta M.D. on 07/11/2016 at 12:37
--- NOTE | 2016-07-11 14:11 | PROG NOTE ---
[address] [address] PROGRESS NOTE PATIENT: TRE VERA : 1935 MR#: [id number] ADMIT: 07/09/2016 JOB ID: [id number] DATE: 07/11/2016 CHIEF COMPLAINT: I am following up on this patient who was admitted with chest pain, mildly elevated troponins. Last night he got very short of breath and because of that I took him acutely to the assistant laboratory director. He did not have any high-grade coronary stenosis appreciated. The area of previous stenting did not look exactly right in some of the views; therefore it was assessed by IVUS, and what this revealed is that in the mid segment of stenting the stent is not well expanded. It is a 3.5 mm stent expanded in the range of 2.5 and in another dimension approximately 3. I think the relative stenosis created by this, however, should not cause rest pain and likely is not hemodynamically significant in terms of exertional pain as well. I cannot rule out spasm related to the stent is causing these symptoms. Before the procedure and afterward he was requiring increased oxygen. Before the procedure I gave him diuretic to diurese him and apparently early this morning he also received some diuretic. Again, when I saw him myself, I gave him another dose of diuretic and I have ordered a basic metabolic panel and a B-natriuretic peptide. Chest x-rays also been ordered. PHYSICAL EXAMINATION: Blood pressure is 114/62, heart rate 65. He is afebrile. Sats are 94% on 9 L. General: Appearing uncomfortable but in no acute distress. Heart: Regular rate and rhythm. Lungs: Coarse breath sounds. Abdomen: Soft. Extremities: Warm. LABORATORIES: Show a white count of 6.7, H and H 11.8 and 35.3, platelets 132,000 stable. Chemistry shows sodium 137, chloride and bicarb 99 and 22 respectively, BUN and creatinine 26 and 1.21. Troponins stayed in the same range without elevated CPK. IMPRESSION: The patient has a history of amyloid heart with left ventricular hypertrophy and review of his last echocardiogram at the end of 2015 shows findings consistent with likely severe diastolic dysfunction. He has elevated EE prime, EA, large left atrium; many of the factors that would suggest he should have diastolic dysfunction. This would be consistent with his left ventricular hypertrophy. It is possible that a lot of his chest pain symptoms might be related to this as well. He seems to be experiencing issues possibly with volume overload at this juncture. PLAN: 1. I would get a chest x-ray. 2. As noted we would give an additional dose of Lasix, a potassium, and check a basic metabolic as well as a BNP on this gentleman. 3. Continue with Lasix; that can help with his filling pressures and make him feel better. 4. Continue with all his cardiac medications including the Plavix and aspirin. 30 minutes spent with the patient MTDD
[2016-07-11] MEDS: Nitroglycerin 50 mg/250 mL D5W 50,000 MCG in IV Premix 1 EACH IV SCH (14:20)
[2016-07-12] VITALS (14 sets, daily range): BP systolic 96–127; BP diastolic 58–69; PULSE 60–72; RESP 17–30; O2SAT 91–98
[2016-07-12] MEDS: Sodium Chloride LOK Flush 10 mL Syringe IVFLUSH SCH ×3 (00:30→16:27)
[2016-07-12 05:36] LABS: Mean Corpuscular Hemoglobin 31.2 pg (27.0-35.0); Mean Corpuscular Volume 93.4 fL (81-100)
[2016-07-12 05:56] LABS: Magnesium 1.9 mg/dL (1.6-2.6)
[2016-07-12] MEDS: Ranolazine ER 500 mg ER12 Tablet PO SCH ×2 (08:48→21:40)
[2016-07-12] MEDS: Isosorbide Mononitrate 30 mg ER24 Tablet PO SCH (12:33)
[2016-07-12] MEDS: Nitroglycerin 50 mg/250 mL D5W 50,000 MCG in IV Premix 1 EACH IV SCH (14:20)
--- NOTE | 2016-07-12 14:44 | DRSVH ---
PROCEDURE: US VENOUS LEG DUPLEX BILATERAL INDICATIONS: shortness of breath concern for clot TECHNIQUE: Real-time imaging, as well as color and pulse Doppler interrogation, were performed of the deep veins of both legs from the inguinal ligament to the popliteal fossa. COMPARISON: [facility], PVE UNILATERAL RIGHT, 04/01/2010, 9:26. [facility], PVE U NILATERAL LEFT, 12/28/2008, 9:44. FINDINGS: The deep veins are normally compressible, and free of intraluminal thrombus. Color and pu lse Doppler demonstrate normal phasic intravascular flow. There is normal augmentation response to d istal compression maneuver. IMPRESSION: No deep venous thrombosis identified within either the left or right lower extremities. Dictated by: Hamilton CALLAWAY Interpreted: Sundar Cruz MD on 07/12/2016 at 14:43 Transcribed by: SAMMI on 07/12/2016 at 14:44 Approved by: Sundar Cruz M.D. on 07/12/2016 at 15:27
[2016-07-12] MEDS ORDERED: Heparin 5,000 Unit/mL Inj SUBQ SCH (15:10)
--- NOTE | 2016-07-12 15:11 | PCM.PNMED ---
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 ED due to severe chest pain since last night. The patient was transferred to [facility] ED due to concern about possible NSTEMI. Patient had cardiac catheterization with no new lesions seen. Currently being worked up for increasing oxygen needs. Hospital Day 4. Overnight: Nitroglycerin drip continued and increased to 15 as patient had worsening chest pain. Titrated back down to 10. Patient continues to have increasing oxygen needs. Today: Patient endorses shortness of breath and chest tightness. Imdur added to medication regimen and nitroglycerin drip to be titrated off. Denies fever, chills, nausea, vomiting, abdominal pain, dysuria, or diarrhea. Remaining review of systems negative. Exam Vital Signs Vital Sign - Last Date Time Temp Pulse Resp B/P Pulse Ox O2 Delivery O2 Flow Rate FiO2 07/12/16 12:14 36.6 62 26 106/61 93 OxyMask 8.00 Intake and Output 07/11/16 07/11/16 07/12/16 Cumulative From/Thru 15:00 23:00 07:00 07/09/16 11:36 - 07/12/16 04:51 Intake Total 661 ml 490 ml 3858 ml Output Total 975 ml 700 ml 4225 ml Balance -314 ml -210 ml -367 ml Intake Oral 640 ml 490 ml 2530 ml IV Total 21 ml 1328 ml Output Urine Total 975 ml 700 ml 4225 ml # Bowel Movements 0 Exam General: No acute distress, well developed, well nourished, appropriately interactive HEENT: Normocephalic, atraumatic. Hearing aids in place. Pupils equal, round, and reactive to light and accommodation. Moist oral mucosa. Neck: Supple with full range of motion. No jugular venous distension. Cardiovascular: Regular rate and rhythm with no rubs, or gallops appreciated. A 2/5 holosystolic murmur is appreciated best at the left sternal border. Radial pulses intact bilaterally. Pulmonary: Clear to auscultation bilaterally. Decreased air movement in lower lung murray. Normal respiratory effort with no use of accessory muscles. Abdomen: Bowel tones present. Soft, nontender. Extremities: No clubbing, cyanosis, edema, or lymphadenopathy appreciated. Skin: Normal temperature, turgor, and texture; no rash, ulcers, or subcutaneous nodules appreciated. Neurological: Cranial nerves grossly intact. Normal muscle strength, tone, and bulk. Reflexes, coordination, and sensory function within normal limits. No known gait impairment. Psychiatric: Normal mood and affect. Alert and oriented to person, place, and time. Lab and Diagnostics Result Diagram: 07/12/16 0508 07/12/16 0508 Cardiac Echo Impressions Echocardiogram Report Interpretation Summary 1. Normal left ventricular size with moderately increased wall thickness and overall preserved LV systolic function. 2. Normal right ventricular size with low normal systolic function Reading Physician:02:36 PM Additional Diagnostics Angiogram FINDINGS: Coronaries: 1. Left main, minor luminal irregularities. 2. Circumflex artery, the vessel-gives rise to a ramus intermedius versus 1st obtuse marginal branch which appears free of obstructive disease. A 2nd obtuse marginal branch has competitive filling evidence from a graft. The circumflex artery continues down in the area of stenting. In only isolated views evidence for calcified plaque is seen in the area adjacent to the stent. It is not clear if this was in the stent or outside of the stent. As noted, IVUS was performed, and this revealed that this was outside of the stent and the stent was suboptimally deployed in this area of interest. No significant in-stent restenosis was appreciated, however. 3. Left anterior descending artery. This vessel has evidence of a stenosis prior to the touchdown of the STUART to LAD which shows good competitive filling. The vessel distal to the area of the touchdown appears free of obstructive disease. 4. Right coronary artery. This vessel appears to have evidence of prior stenting. Flow appears good. No evidence of significant in-stent restenosis. 5. Saphenous graft to obtuse marginal branch. This is widely patent with some evidence of competitive filling retrograde to the circumflex artery. 6. STUART to left anterior descending artery. This is widely patent. No evidence for anastomotic, nor post anastomotic stenoses. HEMODYNAMICS: Aortic pressure 110/46, heart rates in the 60s. MEDICATIONS: Given in the case: Please see hemodialysis lab technician report. IMPRESSION: 1. Widely patent graft to the obtuse marginal branch and left anterior descending artery. 2. Evidence for a patent stent in the circumflex artery, however, evidence for external plaque that appears calcified and prevented adequate expansion of the stent in the area of concern that was treated back in May 2016, however, by IVUS the relative stenosis still appears to be not significant enough to be causing his progressive symptoms. 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 ED due to severe chest pain since last night. The patient was transferred to [facility] ED due to concern about possible NSTEMI. Patient had cardiac catheterization with no new lesions seen. Currently being worked up for increasing oxygen needs. Hospital Day 4. 1. Chest pain/dyspnea, present on admission, improving. - probably due to NSTEMI due to small vessel /distal artery ,angiogram negative for major artery or stent blockage -In the setting of a complex cardiac history including cardiac amyloid and significant CAD s/p multiple stents and 3-vessel CABG 8 years ago. -Cardiac catheterization completed on 07/[address] Boyce that revealed patent stents and no new lesions. -Heparin drip discontinued after cardiac catheterization. -Repeat echo unchanged from prior in May 2016. -Nitroglycerin drip continued but being titrated down. -Imdur 30 mg started 07/12. -Aspirin 81 mg daily. -Clopidogrel 75 mg daily. -Atorvastatin 40 mg daily. -Metoprolol tartrate 25 mg twice a day. -Ranolazine 500 mg twice a day. -No ACEi due to borderline BP and no evidence of HFrEF -Cardiology following. Appreciate time and recommendations. 2. Acute hypoxemic respiratory failure, present on admission, active. -Chest xray on 07/11 revealed scarring in left lung base, pneumonia vs chronic distortion of right lung. -Oxygen requiments increased from baseline. Currently requiring 5-6 L by oxymask. -Bilateral venous duplex of lower extremities order. Results pending. -Consider CTA tomorrow. Waiting due to recent angiography and slight bump in creatinine. -Pulmonology consulted. Appreciate time and recommendations. 3. Coronary artery disease, chronic, present on admission, active. -Workup and treatment as above. 4. Cardiac, renal and pulmonary amyloidosis, chronic, present on admission, active. -Patient is followed by Dr. Dawn in [facility] -Currently not under treatment 5. CLL in remission, as on admission, chronic. -Patient is followed by Dr. Dawn in [facility] -Currently not under treatment 6. Hypertension, chronic, present on admission, active -Metoprolol tartrate 25 mg BID. 7. Hyperlipidemia, chronic, present on admission, active -Statin as above. 8. Mild dementia, chronic, present on admission, active -Fall risk, nursing to monitor. 9. Aortic stenosis, chronic, present on admission, active -Not critical, outpatient follow up. 10. 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 Disposition: Patient continues with chest pain and shortness of breath. Cardiology optimizing medications. Pulmonology consulted. Pain Evaluation: Adequate Pain Control GI Prophylaxis: Not indicated VTE Prophylaxis: Sub-Q Heparin (Unfractionated), Other (heparin drip) VTE Mechanical Devices: Intermittant Pneumatic CD Resuscitation Status: DNR/DNI:Do Not Resuscitate/Intubate Attending Statement patient seen and examined with Dr Olivarez ,I agree with history,exam ,assessment and plan as outlined above . NINA OLIVAREZ DO Jul 12, 2016 15:11 Sunday Go MD Jul 12, 2016 16:44
[2016-07-12] MEDS ORDERED: Heparin 5,000 Unit/mL Inj IVPUSH PRN (16:30)
--- NOTE | 2016-07-12 16:46 | PCM.CHPMED ---
Subjective Date of Service: Jul 12, 2016 Provider requesting consult: NINA OLIVAREZ DO Primary Physician: Admitting Physician: Aldair Marr MD Primary Care Physician: Surjit Duque MD Attending Physician: Aldair Marr MD Chief Complaint: Chief Complaint: Reason for consult: Acute hypoxemic respiratory failure with increasing oxygen requirements History of Present Illness: Mr. Armen Tijerina is a pleasant 80 year old gentleman with a complex medical history including CLL, amyloidosis of renal, cardiac, and pulmonary systems, and CAD s/p 3-vessel CABG and recent stent placement, that presented initially to [facility] with severe chest pain, and was transferred to [facility] for continued cardiac care with concern of STEMI. He was admitted for evaluation and treatment of NSTEMI. Pulmonology has been consulted to investigate the etiology of his acute hypoxemic respiratory failure and increasing oxygen needs. History is provided by both patient and , whom is present at bedside. Patient admits to being a poor historian. Patient and report that after stent placement 06/06/2016, he felt relatively well, and was able to complete 2 mile walks without difficulty, and without need of additional medications. He and his then fell ill for approximately one week, with 2-3 days of complete bedrest, secondary to symptoms of fatigue, myalgias, SOB, described as a 'flu-like illness.' They reported he recovered with moderate progress, but then later developed the severe chest pain that brought him into the ED at [place]. He currently reports difficulty breathing when sitting upright; relief when laying flat. Unable to tolerate upright position for prolonged periods, and limits ability to maintain adequate oral intake in one sitting. Denies any previous lung conditions. 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 That occurred during a time when he was undergoing chemotherapy for his CLL. Reports that he has chronic environmental allergies. Denies allergies to pets, medications, shellfish. Reports allergy to abalone. Current pet includes cat. No history of exposure to livestock, reptiles. 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 Reports exposure to diesel fumes, lead paint; denies any known exposures to asbestos, silicone, beryllium. Reports he completed majority of boat repairs when needed. Denies any inhaled or chewed tobacco use, or any other inhaled substances. Unaware of any known TB exposure. Travel to [place] was > 30 years ago. Reports travel to desert within recent year, spent 6 weeks in area. Served in [employer], international travel included [place]. Stationed in [place]. Has never required oxygen, other than post-operatively. Denies any history of similar symptoms, of prolonged SOB, increased O2 requirements, and inability to sit up without difficulty. Admits to procedure and a 3 day bedrest within recent month; no known h/o DVT/PE , did not note any unilateral swelling or redness of extremities. Reports complicated history with amyloidosis and CLL, has seen numerous specialists across the [place] he was approached with possibility of lung biopsy, but does not recall proceeding with it. Denies any history of other lung conditions/diagnoses, including asthma. Does not recall Bx completed of abnormal findings within left lung. Denies any thoracic surgery other than CABG , and thoracentesis. believes the [facility] may have records from [facility], but she agrees to search at home and bring in what she could find. She also does not recall any lung biopsies being completed in his medical history. Oncologist: Eliezer Her Recently evaluated by [facility] Food Cooking Machine Operator: Dr. Bailey Has been seen by [facility] for amyloidosis work up and care Review of Systems: Complete ROS obtained PMH Past Medical History CAD s/p 3 vessel CABG HTN Hyperlipidemia Cardiac, pulmonary, and renal amyloidosis CLL in remission Mild dementia Aortic stenosis TIA Hx DVT LLE s/p IVC filter Cataracts Surgical History CABG IVC filter placement Back surgery Cataract surgery Home Medications Amlodipine (Amlodipine) 10 Mg Tablet 10 MG PO DAILY Aspirin (Aspirin) 81 Mg Tablet 81 MG PO DAILY Atorvastatin Calcium (Atorvastatin Calcium) 80 Mg Tablet 80 MG PO DAILY Calcium Citrate (Calcium Citrate) 250 Mg Tablet 250 MG PO BID Cholecalciferol (Vitamin D3) (Vitamin D3) 400 Unit Tablet 400 UNIT PO BID Clopidogrel (Clopidogrel) 75 Mg Tablet 75 MG PO DAILY Famotidine (Famotidine) 20 Mg Tablet 20 MG PO HS Magnesium Oxide (Uromag) 84.5 Mg Capsule 84.5 MG PO DAILY Multivitamin-Min/Iron/FA/Vit K (Multi-Day Plus Minerals Tablet) 18 Mg Iron-400 Mcg-25 Mcg Tablet 1 EACH PO DAILY Nitroglycerin 0.6 mg/hr Patch (Nitroglycerin 0.6 mg/hr Patch) 1 Each Patch 1 PATCH TRANSDERM DAILY Ranolazine ER (Ranexa) 500 Mg Tablet.er 500 MG PO BID As needed Nitroglycerin SL (Nitrostat) 0.4 Mg Tab.subl 0.4 MG SL DIRECTED PRN PRN For Chest Pain Allergies: Coded Allergies: No Known Drug Allergies (Verified Allergy, Unknown, 07/10/16) Uncoded Allergies: ABALONE (Allergy, Mild, NAUSEA/VOMITING TO THIS FISH, 07/09/16) Family History Family History No family history of amyloidosis or heart disease. Mother had pancreatic cancer. 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 [employer] Alcohol Use: Yes (1 drink a few times/week)Hx Substance Use: Yes (marijuana many years ago)Hx Tobacco Use: No Smoking Status: Never Smoker Exam Vital Signs Vital Sign - Last Date Time Temp Pulse Resp B/P Pulse Ox O2 Delivery O2 Flow Rate FiO2 07/12/16 12:14 36.6 62 26 106/61 93 OxyMask 8.00 Intake and Output 07/11/16 07/11/16 07/12/16 Cumulative From/Thru 15:00 23:00 07:00 07/09/16 11:36 - 07/12/16 04:51 Intake Total 661 ml 490 ml 3858 ml Output Total 975 ml 700 ml 4225 ml Balance -314 ml -210 ml -367 ml Intake Oral 640 ml 490 ml 2530 ml IV Total 21 ml 1328 ml Output Urine Total 975 ml 700 ml 4225 ml # Bowel Movements 0 General: Alert, Oriented X3, Cooperative, No Acute Distress Head: Facial Expression & Appearance (Appropriate) Eyes: Scleral Anicteric Nose: Mucous Membr Moist/Mckenney Mouth: Mucous Membr Moist/Mckenney Chest & Lungs: No adventitious breath sounds, Diminished breath sounds (Left base) Cardiovascular: Regular Rate/Rhythm Abdomen: Non-tender Extremities: No cyanosis/clubbing/edma bilat Skin: Other (Warm, dry) Neurological: Grossly Neurologically Intact, Cranial Nerves 2-12 Intact, Normal Speech Lab and Diagnostics Result Diagram: 07/12/16 0508 07/12/16 0508 Assessment & Plan Assessment Mr. Armen Tijerina is a pleasant 80 year old gentleman with a complex medical history including CLL, amyloidosis of renal, cardiac, and pulmonary systems, and CAD s/p 3-vessel CABG and recent stent placement, that presented initially to [facility] with severe chest pain, and was transferred to [facility] for continued cardiac care with concern of STEMI. He was admitted for evaluation and treatment of NSTEMI. Pulmonology has been consulted to investigate the etiology of his acute hypoxemic respiratory failure and increasing oxygen needs. Patient has been afebrile throughout admission. Respiratory PCR negative. Echo completed 07/10 was limited study to eval ventricular fx: Normal LV size with moderately increased wall thickness; EF55-60. Normal RV size and function. Cardiac cath 07/10: Widely patent graft of marginal and LAD; overall patent stent within CX with non-stenotic plaque at site of stent deployment. Bedside US completed to eval for cardiac effusion and pleural effusion. Small effusion noted left pleural space; no cardiac effusion noted on bedside examination. Patient became notably dyspneic when sitting upright for US. BiPAP and DuoNebs started. Differential includes PE, but due to increase in creatinine secondary to lasix admin and recent cardiac cath, CTA could not be performed at time of consultation. Treat for presumed PE. Proceed with CTA 07/13/2016. Assessments - Acute hypoxemic respiratory failure - Amyloidosis of renal, cardiac, pulmonary systems - Elevated D-dimer Plan - Recommend resuming heparin gtt to tx presumed PE - Continue with CTA 07/13 - V/Q may not be beneficial considering h/o amyloidosis and chronic abnormal findings within lobes - Await venous doppler study results to eval presence DVT - Records request placed to Dr. Dawn, and [facility] - [facility] push [facility] to [facility] - Start NIPPV/BPAP - Duonebs q4h kati - STOP metoprolol; re-assess in am - DVT: Hep gtt - GI: None - Code: DNR/DNI Thank you for this interesting consult, we will happily follow along with you. Please do not hesitate to contact us with any questions or concerns. Total time: 60 minutes Problems: Pain Evaluation: Adequate Pain Control GI Prophylaxis: Not indicated VTE Prophylaxis: Other (heparin drip) VTE Mechanical Devices: Intermittant Pneumatic CD Resuscitation Status: DNR/DNI:Do Not Resuscitate/Intubate Attending Statement I have seen and examined this patient with the resident physician. Vital signs , labs, imaging have been reviewed. I agree with the assessment and plan above. Please refer to my separately dictated progress note for any modifications to above. Maday Weldon M.D. Pulmonary and Critical Care medicine Pager [phone] Nat Candelaria DO Jul 12, 2016 15:07 Maday Weldon MD Jul 13, 2016 11:10
[2016-07-12] MEDS: Albuterol-Ipratropium 3 mL Inhalation Solution NEB SCH ×2 (17:15→20:27)
[2016-07-12] MEDS: Heparin 25K Unit/500mL 0.45 NS 25,000 UNIT in IV Premix 1 EACH IV SCH (17:47)
[2016-07-12] MEDS ORDERED: 0.9% Sodium Chloride 500 ML IV ONE (23:00)
[2016-07-13] VITALS (15 sets, daily range): BP systolic 100–125; BP diastolic 60–74; PULSE 65–97; RESP 16–34; O2SAT 88–98
[2016-07-13] MEDS: Albuterol-Ipratropium 3 mL Inhalation Solution NEB SCH ×7 (00:01→20:15)
[2016-07-13] MEDS: Sodium Chloride LOK Flush 10 mL Syringe IVFLUSH SCH ×4 (00:30→20:29)
[2016-07-13 05:22] LABS: BASOPHILS % (AUTO) 0.2 % (0-3); EOSINOPHILS % (AUTO) 0.7 % (0-5); MONOCYTES % (AUTO) 10.6 % (4-12); Mean Corpuscular Hemoglobin 31.7 pg (27.0-35.0); Mean Corpuscular Volume 94.2 fL (81-100); NEUTROPHILS % (AUTO) 80.2 % (40-74); Platelet Count 129 bil/L (150-400)
--- NOTE | 2016-07-13 07:18 | CONS ---
[address] [address] CONSULTATION REPORT PATIENT: TRE VERA : 1935 MR#: [id number] ADMIT: 07/09/2016 JOB ID: [id number] DATE OF SERVICE: 07/12/2016 PULMONARY CARE CONSULTATION NOTE: The patient is an 80-year-old man with history of coronary artery disease, amyloidosis affecting multiple organs including heart and lungs, seen in consultation at the request of Dr. Go for acute hypoxic respiratory failure requiring oxygen and shortness of breath. The patient was seen and evaluated with resident physician, Nat Candelaria DO (RES). Please refer to her separate detailed note for additional information. The following is an addendum. HISTORY OF PRESENT ILLNESS: The patient is an 80-year-old man with history of amyloidosis as mentioned above, and coronary artery disease for which he had a recent stent placed in May. He has been having chest pain and some associated shortness of breath according to his , especially with activity. This sounded very suspicious for angina. His however says that the shortness breath was not truly separate from the chest pain and could have just been discomfort related to chest pain. Since admission to the hospital over the last few days, however, he has had worsening shortness of breath and hypoxemia. When he first came in he was on 2 L of oxygen and is now up to 8 L OxyMask with saturations around low to mid 90s. When he was admitted there was concern for stent rethrombosis and he underwent a repeat angiogram which showed a patent stent. He has also had a limited echocardiogram which does not show any acute abnormalities. He denies any cough, sputum, fever, chills, or sweats. He does say that approximately 10 days ago he had some kind of viral infection, as did his , which presented as a cold, cough, some sweats. These symptoms seem to have resolved, however. Currently he is severely short of breath and even just with sitting up in bed for me to listen to him he began gasping. His sats, however, stayed stable around 92-94 throughout this episode. Past medical history, social history, family history, and review of systems are per Dr. Candelaria's note. Of note, past medical history includes amyloidosis for which he has been seen at [facility], [facility], etc. and last on chemotherapy for this in . He also has a history of CLL but according to his he was never treated separately for this and has not received any therapy for this other than the amyloid therapy last in 2010. Coronary artery disease status post stent in May 2016, as mentioned above. SOCIAL HISTORY: A never smoker. 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 Had his own boat and was probably exposed to asbestos on that boat. PHYSICAL EXAMINATION: Vital signs reviewed. Afebrile. Pulse 70, respirations 20, BP 111/61, sats 94% on 8 L nasal cannula. General: Elderly gentleman lying in bed, frail, chronically ill-appearing. Chest: He has some upper lobe predominant wheeze heard more on the right side. He has some decreased breath sounds at the left lung base and some crackles at the right lung base. No other abnormal sounds. Heart: Regular rate, rhythm. No murmurs. Abdomen nontender. No organomegaly, rebound, or guarding. Extremities: No cyanosis, clubbing, edema, joint swelling. Skin: No rashes. HEENT: His left pupil appears to have some ptosis which is likely chronic. LABORATORIES: Reviewed and notable for a procalcitonin this morning 0.19, proBNP of 5800. His creatinine today is up to 1.4 from 1.2 on admission. Cultures: Respiratory viral PCR panel was negative. IMAGING: Chest x-ray reviewed and shows chronic left-sided pleural effusion. There is also some evidence of pulmonary vascular congestion, more prominent on the right. He had a venous duplex done today to rule out DVT which was negative. ASSESSMENT: 1. Acute hypoxic respiratory failure-on 8 L nasal cannula. 2. History of CLL. 3. History of amyloidosis including pulmonary involvement. 4. Chronic left pleural effusion. 5. Coronary artery disease status post stent in May 2016. RECOMMENDATIONS: This complex 80-year-old gentleman with multiple medical problems is presenting with acute hypoxic respiratory failure of unclear etiology. Chest x-ray does show some acute changes which could be edema or infection but his symptoms did not improve with diuresis and pro calcitonin is negative. Possibilities here include acute pulmonary embolism. Given his recent contrast load for angiogram barely two days ago, and his rising creatinine, we decided to hold off on giving him any further contrast. He did get a CT of his chest two weeks ago at [facility] and was told it looked "fine," so I will try to get these images to review since this was done after he began having symptoms. It is also possible that his pleural effusion is larger now and needs drainage. However, I looked at his effusion with an ultrasound at the bedside and it did not seem impressively enlarged based on my imaging. It is possible that he has developed an infection in his space or developed trapped lung, but that would not necessarily cause acute hypoxemia. I also spoke with Dr. Boyce, who thinks he might have a restrictive cardiomyopathy related to his amyloid which from the sound of it is difficult to treat and causes symptoms but should not typically cause hypoxia. He did have a lower extremity duplex that did not have DVT, which is somewhat reassuring. I asked the primary team to continue the heparin drip until we can get a CT of his chest tomorrow. If were still not able to get a CT, we might have to make do with a V/Q scan in the interim. I am going to prescribe BiPAP for the patient because of his respiratory distress in addition to DuoNeb q.4 hours to help with his wheezing. Will see if this helps his symptoms any. I will follow up on him tomorrow and try to review all the records and outside imaging in the meantime. TOMAS
[2016-07-13] MEDS: Isosorbide Mononitrate 30 mg ER24 Tablet PO SCH (07:45)
[2016-07-13] MEDS: Ranolazine ER 500 mg ER12 Tablet PO SCH ×2 (07:46→20:29)
--- NOTE | 2016-07-13 10:11 | DRSVH ---
PROCEDURE: X-RAY CHEST ONE VIEW, PORTABLE ([id number]) INDICATIONS: SHORT OF BREATH TECHNIQUE: One view of the chest was acquired. COMPARISON: [facility], CR, XR CHEST 1VW (PORTABLE), 07/11/2016, 11:07. [facility], CR, XR CHEST 2VW, 12/02/2015, 13:05. [facility], CR, CHEST 1 VIEW, 07/09/2016, 11:04. FINDINGS: Surgical changes and devices: Post median sternotomy. Lungs and pleura: No significant interval change in widespread bilateral interstitial and basilar air space opacities. Pleural effusions present, left greater than right and likely loculated on the lef t. No pneumothorax. Mediastinum: Mediastinal contours appear normal. Heart size is normal. Bones and chest wall: No suspicious bony lesions. Overlying soft tissues appear unremarkable. IMPRESSION: 1. Pulmonary edema and/or multifocal pneumonia not significant change. 2. Bilateral pleural effusions, likely loculated on the left. Continued radiographic surveillance to resolution is recommended. Dictated by: Hamilton Narayan [facility] Interpreted: Rosita Mahoney MD on 07/13/2016 at 10:08 Transcribed by: ZAIN on 07/13/2016 at 10:10 Approved by: Rosita Mahoney MD, PhD on 07/13/2016 at 16:26
--- NOTE | 2016-07-13 12:20 | PCM.PNMED ---
Subjective Date of Service Jul 13, 2016 Subjective PULMONARY PROGRESS NOTE Overnight: No acute events. Tolerated BIPAP well, reported discomfort, but was able to keep on. Reported mild chest pain, approx 3/10. Slept well. Today: No acute distress. present at bedside. Able to sit up well without SOB. Oxygen sats improved. Has not yet worked with PT. Tolerating po intake well. Denies fever, chills, nausea, vomiting. States dyspnea has improved. Notes some discomfort in bed, attributes to sitting for prolonged periods. Info: Oxymask at 9L with sats 95%; BPAP on standby Exam Vital Signs Vital Sign - Last Date Time Temp Pulse Resp B/P Pulse Ox O2 Delivery O2 Flow Rate FiO2 07/13/16 08:15 77 20 98 OxyMask 10.00 07/13/16 07:41 37.0 117/66 07/13/16 06:04 40 Intake and Output 07/12/16 07/12/16 07/13/16 Cumulative From/Thru 15:00 23:00 07:00 07/09/16 11:36 - 07/13/16 06:23 Intake Total 710 ml 877 ml 5445 ml Output Total 275 ml 650 ml 5150 ml Balance 435 ml 227 ml 295 ml Intake Oral 640 ml 400 ml 3570 ml IV Total 70 ml 477 ml 1875 ml Output Urine Total 275 ml 650 ml 5150 ml # Bowel Movements 0 0 Exam General: AAOx3; pleasant and cooperative HENT: Atraumatic, sclera anicteric; mucus membranes moist; OxyMask in place Neck: No pain with ROM Cardiac: Regular rate and rhythm; no murmurs appreciated at time of examination Respiratory: Faint BL coarse sounds L > R; L sounds diminished > R; no wheeze at time of examination; no use accessory muscles Abdomen: Soft, nontender, nondistended Extremities: No edema Skin: Warm and dry Neuro: CNII-XII grossly intact; facial expressions symmetric; speech normal Psych: Appropriate affect, mood, and responses to questioning; good insight and judgment Lab and Diagnostics Result Diagram: 07/13/1651407/13/16514 Cardiac Echo Impressions Echocardiogram Report Interpretation Summary 1. Normal left ventricular size with moderately increased wall thickness and overall preserved LV systolic function. 2. Normal right ventricular size with low normal systolic function Reading Physician:02:36 PM Additional Diagnostics Angiogram FINDINGS: Coronaries: 1. Left main, minor luminal irregularities. 2. Circumflex artery, the vessel-gives rise to a ramus intermedius versus 1st obtuse marginal branch which appears free of obstructive disease. A 2nd obtuse marginal branch has competitive filling evidence from a graft. The circumflex artery continues down in the area of stenting. In only isolated views evidence for calcified plaque is seen in the area adjacent to the stent. It is not clear if this was in the stent or outside of the stent. As noted, IVUS was performed, and this revealed that this was outside of the stent and the stent was suboptimally deployed in this area of interest. No significant in-stent restenosis was appreciated, however. 3. Left anterior descending artery. This vessel has evidence of a stenosis prior to the touchdown of the STUART to LAD which shows good competitive filling. The vessel distal to the area of the touchdown appears free of obstructive disease. 4. Right coronary artery. This vessel appears to have evidence of prior stenting. Flow appears good. No evidence of significant in-stent restenosis. 5. Saphenous graft to obtuse marginal branch. This is widely patent with some evidence of competitive filling retrograde to the circumflex artery. 6. STUART to left anterior descending artery. This is widely patent. No evidence for anastomotic, nor post anastomotic stenoses. HEMODYNAMICS: Aortic pressure 110/46, heart rates in the 60s. MEDICATIONS: Given in the case: Please see molder labels report. IMPRESSION: 1. Widely patent graft to the obtuse marginal branch and left anterior descending artery. 2. Evidence for a patent stent in the circumflex artery, however, evidence for external plaque that appears calcified and prevented adequate expansion of the stent in the area of concern that was treated back in May 2016, however, by IVUS the relative stenosis still appears to be not significant enough to be causing his progressive symptoms. Christa Boyce MD 07/10/16 1222 Assessment & Plan PULMONARY PROGRESS NOTE Mr. Armen Tijerina is a pleasant 80 year old gentleman with a complex medical history including CLL, amyloidosis of renal, cardiac, and pulmonary systems, and CAD s/p 3-vessel CABG and recent stent placement, that presented initially to [facility] with severe chest pain, and was transferred to [facility] for continued cardiac care with concern of STEMI. He was admitted for evaluation and treatment of NSTEMI. Pulmonology has been consulted to investigate the etiology of his acute hypoxemic respiratory failure and increasing oxygen needs in a patient with no history of chronic oxygen use. Patient has been afebrile throughout admission. Respiratory PCR negative. PCT negative. Echo completed 07/10 was limited study to eval ventricular fx: Normal LV size with moderately increased wall thickness; EF55-60. Normal RV size and function. Cardiac cath 07/10: Widely patent graft of marginal and LAD; overall patent stent within CX with non-stenotic plaque at site of stent deployment. Bedside US completed to eval for cardiac effusion and pleural effusion. Small effusion noted left pleural space; no cardiac effusion noted on bedside examination. Patient became notably dyspneic when sitting upright for US. BiPAP and DuoNebs started. Differential includes PE, but due to increase in creatinine secondary to lasix admin and recent cardiac cath, CTA could not be performed at time of consultation. Treated for presumed PE. Venous doppler US did not reveal any evidence DVT of BLLE. Proceed with CTA 07/13/2016. With respect to the existing IVCF, reports the filter was permanent, not temporary, and remains. Some information from [place] and [place] was provided by the family, which has been placed in the chart. Metoprolol was stopped 07/12; patient reported improved breathing and present, but less severe chest pain the following day. Assessments - Acute hypoxemic respiratory failure - Amyloidosis of renal, cardiac, pulmonary systems - Elevated D-dimer Plan - Continue heparin gtt to tx presumed PE; DC when ruled out - Continue with CTA 07/13 - V/Q may not be beneficial considering h/o amyloidosis and chronic abnormal findings within lobes - [facility] Dawn, [facility] - Imaging push request to [facility] [place]; will be uploaded 07/13 - Duonebs q4h kati - BPAP on stand-by - Continue to wean O2 as tolerated - Work with physical therapy to assess tolerance and O2 demands - DVT: Hep gtt - GI: None - Code: DNR/DNI Thank you for this interesting consult, we will happily follow along with you. Please do not hesitate to contact us with any questions or concerns. Total time: 60 minutes GI Prophylaxis: Not indicated VTE Prophylaxis: Other (heparin drip) VTE Mechanical Devices: Intermittant Pneumatic CD Resuscitation Status: DNR/DNI:Do Not Resuscitate/Intubate Attending Statement I have seen and examined this patient with the resident physician. Vital signs , labs, imaging have been reviewed. I agree with the assessment and plan above. Please refer to my separately dictated progress note for any modifications to above. Maday Weldon M.D. Pulmonary and Critical Care medicine Pager [phone] Nat Candelaria DO Jul 13, 2016 12:20 Maday Weldon MD Jul 14, 2016 15:48
--- NOTE | 2016-07-13 13:31 | PROG NOTE ---
[address] [address] PROGRESS NOTE PATIENT: TRE VERA : 1935 MR#: [id number] ADMIT: 07/09/2016 JOB ID: [id number] DATE: 07/13/2016 CARDIOLOGY PROGRESS NOTE: CHIEF COMPLAINT: The patient came in with increased shortness of breath and chest pain. He has a presumptive diagnosis of amyloid cardiomyopathy. He has diastolic measurements on an echocardiogram performed last month and it is suggests that he does have significant diastolic dysfunction. When he was brought into the hospital he was actually placed on metoprolol. He was taken to the clinical laboratory service teacher and no new obstructive disease was appreciated. Good DP. He had been getting progressively worse in terms of his dyspnea. He was diuresed without benefit. Yesterday decided to stop the metoprolol as it is known to not help people with amyloid heart, unless they are in atrial fibrillation, so his heart rate has increased. He was also seen by pulmonary with increased oxygen placed. He is now on Imdur as his vasodilator and his chest pain has certainly improved. He is off nitro drip. PHYSICAL EXAMINATION: Blood pressure is 117/66, heart rate 78, sats are 96% on 9-10 L. General: In no acute distress, but sleeping. Heart: Regular rate and rhythm. Lungs: Not assessed. Extremities: Warm. No edema. CURRENT MEDICATIONS: Include albuterol nebs, aspirin 325 daily, Ranexa 500 b.i.d., Plavix 75 daily, Imdur 30 mg daily, atorvastatin 40. He has been placed on a heparin drip until he gets ruled out for pulmonary embolism as a cause for his worsening lung issues. He is off metoprolol. LABORATORIES: Today show a white count 5.6, H/H 10.4/30.9, platelets 129,000. Chemistry shows sodium 134, potassium 4.3. Chloride and bicarb 98 and 25, respectively. BUN and creatinine 29 and 1.17; this has normalized. IMAGING: Shows a chest x-ray from today that shows pulmonary edema and/or multifocal pneumonia but no significant change. Pleural effusions may be loculated on the left. IMPRESSION: The patient has a presumptive diagnosis of amyloid heart given the diagnosis of amyloid from a lung biopsy in the past. He was admitted with chest discomfort. Because of worsening symptoms he was taken to the cath laboratory. The stent was previously placed at the end of May, while not optimally expanded in the area of stenosis, did not have any acute problems. Other coronary grafts were fine. He had increased shortness of breath. It is not clear that he responded well to Lasix. Apparently he feels much better with oxygen. I am not certain if he has any other lung issues that might be related amyloid such as an interstitial process; however, we appreciate to help of the patient advocate. PLAN: 1. I would continue with Imdur as his medication. Continue with aspirin and Plavix. Continue with atorvastatin. I would not put any diltiazem or metoprolol back on him at this time as it may not benefit him. 2. Will wait for the workup from the patient advocate to see if there are any other clues as to what could be making his breathing worse; perhaps a loculated pleural effusion. 3. I had entertained the thought of putting him on a low-dose dobutamine; but, as this is not a good long-term solution, I would only use that if he gets much worse as dobutamine carries a risk of causing him to go into an arrhythmia such as atrial fibrillation which would not be able to tolerate it. 45 minutes spent with the patient MICHELD
[2016-07-13] MEDS: Heparin 25K Unit/500mL 0.45 NS 25,000 UNIT in IV Premix 1 EACH IV SCH (14:04)
--- NOTE | 2016-07-13 16:28 | PCM.PNMED ---
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 The patient was transferred to [facility] ED due to concern about possible NSTEMI. Patient had cardiac catheterization with no new lesions seen. Currently being worked up for increasing oxygen needs. Hospital Day 5. Overnight: Tolerated BiPAP overnight. Patient was able to sleep most of the night. No complaints. Today: Patient had some mild chest pain this morning of 1 or 2 out of 10. Patient continues on heparin drip and oxymask. Further workup by the pulmonology team planned for today including a CTA. Remaining review of systems negative. Exam Vital Signs Vital Sign - Last Date Time Temp Pulse Resp B/P Pulse Ox O2 Delivery O2 Flow Rate FiO2 07/13/16 07:03 65 07/13/16 06:04 37.1 20 112/62 94 BiPAP 40 07/12/16 17:17 8.00 Intake and Output 07/12/16 07/12/16 07/13/16 Cumulative From/Thru 15:00 23:00 07:00 07/09/16 11:36 - 07/13/16 06:23 Intake Total 710 ml 877 ml 5445 ml Output Total 275 ml 650 ml 5150 ml Balance 435 ml 227 ml 295 ml Intake Oral 640 ml 400 ml 3570 ml IV Total 70 ml 477 ml 1875 ml Output Urine Total 275 ml 650 ml 5150 ml # Bowel Movements 0 0 Exam General: No acute distress, well developed, well nourished, appropriately interactive HEENT: Normocephalic, atraumatic. Hearing aids in place. Pupils equal, round, and reactive to light and accommodation. Moist oral mucosa. Oxymask in place. Neck: Supple with full range of motion. No jugular venous distension. Cardiovascular: Regular rate and rhythm with no rubs, or gallops appreciated. A 2/5 holosystolic murmur is appreciated best at the left sternal border. Radial pulses intact bilaterally. Pulmonary: Clear to auscultation bilaterally. Decreased air movement in lower lung murray. Normal respiratory effort with no use of accessory muscles. Abdomen: Bowel tones present. Soft, nontender. Extremities: No clubbing, cyanosis, edema, or lymphadenopathy appreciated. Skin: Normal temperature, turgor, and texture; no rash, ulcers, or subcutaneous nodules appreciated. Neurological: Cranial nerves grossly intact. Normal muscle strength, tone, and bulk. Reflexes, coordination, and sensory function within normal limits. No known gait impairment. Psychiatric: Normal mood and affect. Alert and oriented to person, place, and time. Lab and Diagnostics Result Diagram: 07/13/1651407/13/16514 X-Rays, CTs and MRIs US VENOUS LEG DUPLEX BILATERAL IMPRESSION: No deep venous thrombosis identified within either the left or right lower extremities. Dictated by: Hamilton Narayan RRA Interpreted: Sundar Cruz MD on 07/12/2016 at 14:43 Transcribed by: SAMMI on 07/12/2016 at 14:44 Approved by: Sundar Cruz M.D. on 07/12/2016 at 15:27 X-RAY CHEST ONE VIEW, PORTABLE IMPRESSION: Prior CABG. Chronic scarring left lung base. Right upper and lower lung pneumonia pattern is chronic distortion of the left mid and lower lung due to scarring is present and obscures visualization to the degree that definite underlying left lower lung pneumonia cannot be diagnosed. Dictated by: Herb Acosta M.D. on 07/11/2016 at 12:34 Approved by: Herb Acosta M.D. on 07/11/2016 at 12:37 Cardiac Echo Impressions Echocardiogram Report Interpretation Summary 1. Normal left ventricular size with moderately increased wall thickness and overall preserved LV systolic function. 2. Normal right ventricular size with low normal systolic function Reading Physician:02:36 PM Additional Diagnostics Angiogram IMPRESSION: 1. Widely patent graft to the obtuse marginal branch and left anterior descending artery. 2. Evidence for a patent stent in the circumflex artery, however, evidence for external plaque that appears calcified and prevented adequate expansion of the stent in the area of concern that was treated back in May 2016, however, by IVUS the relative stenosis still appears to be not significant enough to be causing his progressive symptoms. 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 The patient was transferred to [facility] ED due to concern about possible NSTEMI. Patient had cardiac catheterization with no new lesions seen. Currently being worked up for increasing oxygen needs. Hospital Day 5. 1. Chest pain/dyspnea, present on admission, improving. -Probably due to NSTEMI due to small vessel /distal artery, angiogram negative for major artery or stent blockage -In the setting of a complex cardiac history including cardiac amyloid and significant CAD s/p multiple stents and 3-vessel CABG 8 years ago. -Cardiac catheterization completed on 07/[address] Boyce that revealed patent stents and no new lesions. -Repeat echo unchanged from prior in May 2016. -Nitroglycerin drip stopped on 07/13. -Imdur 30 mg started 07/12. -Aspirin 81 mg daily. -Clopidogrel 75 mg daily. -Atorvastatin 40 mg daily. -Stopped: Metoprolol tartrate 25 mg twice a day. -Ranolazine 500 mg twice a day. -No ACEi due to borderline BP and no evidence of HFrEF -Cardiology following. Appreciate time and recommendations. 2. Acute hypoxemic respiratory failure, present on admission, active. -Chest xray on 07/11 revealed scarring in left lung base, pneumonia vs chronic distortion of right lung. -Oxygen requirements increased from baseline. Currently requiring 5-6 L by oxymask. BiPAP used overnight. -Bilateral venous duplex of lower extremities showed no DVTs. -CTA planned for today. -Heparin drip started due to concern for possible PE per pulmonology's recommendations. -Pulmonology consulted. Appreciate time and recommendations. 3. Coronary artery disease, chronic, present on admission, active. -Workup and treatment as above. 4. Cardiac, renal and pulmonary amyloidosis, chronic, present on admission, active. -Patient is followed by Dr. Dawn in [place] -Currently not under treatment 5. CLL in remission, as on admission, chronic. -Patient is followed by Dr. Dawn in [place] -Currently not under treatment 6. Hypertension, chronic, present on admission, active -Stopped: Metoprolol tartrate 25 mg BID. 7. Hyperlipidemia, chronic, present on admission, active -Statin as above. 8. Mild dementia, chronic, present on admission, active -Fall risk, nursing to monitor. 9. Aortic stenosis, chronic, present on admission, active -Not critical, outpatient follow up. 10. 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 Disposition: Patient continues with chest pain and shortness of breath. Cardiology optimizing medications. Pulmonology consulted. Pain Evaluation: Adequate Pain Control GI Prophylaxis: Not indicated VTE Prophylaxis: Other (heparin drip) VTE Mechanical Devices: Intermittant Pneumatic CD Resuscitation Status: DNR/DNI:Do Not Resuscitate/Intubate Attending Statement patient seen and examined with Dr Olivarez ,I agree with history,exam ,assessment and plan as outlined above . NINA OLIVAREZ DO Jul 13, 2016 07:47 Sunday Go MD Jul 13, 2016 16:36
[2016-07-13] MEDS: predniSONE 20 mg Tablet PO SCH (17:16)
--- NOTE | 2016-07-13 17:21 | DRSVH ---
PROCEDURE: CT ANGIO CHEST PULMONARY EMBOLISM ([id number]) INDICATIONS: SOB TECHNIQUE: After the administration of intravenous contrast, 2 mm thick sections acquired from the pulmonary api yefri to the posterior costophrenic angles. 3-dimensional maximum intensity projection (MIP) coronal a nd sagittal reformats were then acquired through the thorax. For radiation dose reduction, the follo wing was used: automated exposure control, adjustment of mA and/or kV according to patient size. COMPARISON: [facility], CT, CT CHEST ABDOMEN PELVIS W CONTRAST, 06/20/2016, 9:21 AM. [facility], CT, CT CHEST ABD PELVIS W CON, 06/20/2016, 9:21. FINDINGS: Image quality: Excellent. Pulmonary arteries: Pulmonary arteries are normal in size, and demonstrate no intraluminal filling d efects to suggest central pulmonary embolism. Lungs and pleura: Moderate right and small left pleural effusions with adjacent atelectasis. There is redemonstration of numerous foci of abnormal soft tissue, for example in the left lung base image 11 6 series 6 measuring approximately 7.6 x 3.5 cm cross-sectionally. Additional right basilar nodule me asuring 2.1 cm. These appear increased since the prior study. Areas of consolidation present within t he right upper lobe and left lower lobe are new since prior study. Mediastinum: Heart size is normal, without pericardial effusion. Multiple 5 mm nodules/lymph nodes present within the pericardial fat for example image 104 series 6 and these appear slightly increased in size. Numerous shotty mediastinal and hilar lymph nodes Thoracic aorta is normal in caliber and enhancement . Esophagus is normal in caliber, without hiatal hernia. Bones and chest wall: No suspicious bony lesions. Lower thoracic compression fractures unchanged. Th yroid gland is unremarkable. No axillary or supraclavicular adenopathy. Abdomen: Incidental cholelithiasis is seen. IMPRESSION: No evidence of pulmonary embolism. New consolidation within the right upper lobe and left lower lobe suspicious for multifocal pneumonia and/or aspiration. Recommend clinical correlation Moderate right pleural effusion with adjacent atelectasis and small left pleural effusion. Multiple bibasilar areas of abnormal soft tissue and nodularity in keeping with metastatic disease as detailed above, which appear slightly progressed since the prior study dated 06/20/16. Incidental cholelithiasis. Dictated by: Hayden Zuñiga M.D. on 07/13/2016 at 17:14 Approved by: Hayden Zuñiga M.D. on 07/13/2016 at 17:21
--- NOTE | 2016-07-13 17:36 | PROG NOTE ---
[address] [address] PROGRESS NOTE PATIENT: TRE VERA : 1935 MR#: [id number] ADMIT: 07/09/2016 JOB ID: [id number] DATE: 07/13/2016 PULMONARY PROGRESS NOTE: The patient was seen and evaluated with resident physician Nat Candelaria DO (RES). Please refer to her separate detailed note for additional information. 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 INTERVAL HISTORY: He remains on 8-10 L of oxygen via OxyMask. He did wear BiPAP last night but did not like it much. He has been getting nebulizers around the clock. He has had some improvement in his shortness of breath but continues to have episodes of chest pain, mostly with position changes. He desaturated when he had to wear nasal cannula for his meal today. REVIEW OF SYSTEMS: No fever, chills, abdominal pain. As above positive for shortness of breath and chest pain. PHYSICAL EXAMINATION: Vital signs reviewed. T-max 36.8, pulse 97, respirations 20, BP 117/70, sats 98% on 9 L OxyMask. General: Lying in bed, sleeping but awakens easily. Chest: Clear today anteriorly. I do not hear any wheezing but he does have some decreased breath sounds at the left lung base. Heart: Soft systolic murmur left sternal border. LABORATORIES: Reviewed. IMAGING: Outside CT from [place] done a few weeks ago in early June was reviewed. This is a CT of the chest, abdomen, and pelvis with contrast. Basically the pulmonary parenchyma looks unchanged compared to prior CT from 2013, with two areas of rounded atelectasis that appear almost masslike in the left lower lobe posterolateral segments, and associated chronic left pleural effusion with thickened pleura. There is also a small area of rounded atelectasis at the right lower lobe, also stable compared to 2013. There is no evidence of large pulmonary embolism in the central pulmonary arteries, but since this was not a dedicated PE study we cannot comment on distal arteries, although there is no evidence of pericardial effusion or other abnormality. ASSESSMENT: 1. Acute hypoxic respiratory failure, on OxyMask 9 L. 2. Recurrent atypical chest pain. 3. Chronic left pleural effusion. 4. History of amyloidosis, including pulmonary and cardiac involvement. 5. History of CLL. 6. Coronary artery disease, status post stent in May 2016. RECOMMENDATIONS: His recent CT from a few weeks ago shows no abnormality that would explain his pain. He has a CT pulmonary angiogram that is to be done later today and is still pending at this time. He is on a heparin drip empirically for the possibility of PE. If his PE study today is negative, I think it is okay to stop the heparin drip. I will review his imaging tomorrow with him since it has not yet been done. The other thing to consider would be the possibility of pericarditis since he has chest pain that is positional. I do not think this would explain the hypoxia, however. I did speak to Dr. Boyce, who thought this possibility was unlikely. We are going to try empiric therapy with prednisone 30 mg daily and see if this helps his symptoms at all. Nothing else to add at this point but I will follow up tomorrow.
[2016-07-13] MEDS ORDERED: Furosemide 10 mg/mL 2 mL Inj IVPUSH ONE (17:45)
[2016-07-14] VITALS (15 sets, daily range): BP systolic 103–128; BP diastolic 57–75; PULSE 77–96; RESP 17–29; O2SAT 92–100
[2016-07-14] MEDS: Albuterol-Ipratropium 3 mL Inhalation Solution NEB SCH ×4 (04:03→16:35)
[2016-07-14 07:29] LABS: Mean Corpuscular Hemoglobin 31.5 pg (27.0-35.0); Mean Corpuscular Volume 93.1 fL (81-100)
[2016-07-14] MEDS: Ranolazine ER 500 mg ER12 Tablet PO SCH ×2 (08:45→20:48)
[2016-07-14] MEDS: predniSONE 20 mg Tablet PO SCH (08:45)
[2016-07-14] MEDS: Isosorbide Mononitrate 30 mg ER24 Tablet PO SCH (08:45)
[2016-07-14] MEDS: Sodium Chloride LOK Flush 10 mL Syringe IVFLUSH SCH ×2 (08:46→16:30)
[2016-07-14 11:20] LABS: INR 0.99 ratio
[2016-07-14] MEDS ORDERED: Piperacillin-Tazo 3.375 Gm Inj 3.375 GM in Dextrose 5% Minibag Plus 50 ML IV SCH (12:20)
--- NOTE | 2016-07-14 14:00 | PROG NOTE ---
[address] [address] PROGRESS NOTE PATIENT: TRE VERA : 1935 MR#: [id number] ADMIT: 07/09/2016 JOB ID: [id number] DATE: 07/14/2016 PULMONARY PROGRESS NOTE: The patient is an 80-year-old man with history of coronary artery disease, amyloidosis affecting multiple organs including heart and lungs seen for follow up of acute hypoxic respiratory failure, shortness of breath and chest pain. INTERVAL HISTORY: He remains on BiPAP since last night. He does say that he had severe chest pain most of last night but since this morning he has had no pain at all. He is on 40% FiO2 on the BiPAP with sats of 97%. He had a chest CT yesterday which showed no PE. REVIEW OF SYSTEMS: As above. No fevers, chills. No chest pain today. PHYSICAL EXAMINATION: Vital signs reviewed. Temperature 36.3, pulse 86, respirations 22, BP 120/74, sats 94% on 40% BiPAP. General: Elderly gentleman, alert, oriented, appropriate. Chest: Decreased breath sounds at bilateral bases. LABORATORIES: Reviewed. A CT chest PE protocol was reviewed at length. There is no evidence of pulmonary embolism. There is a new right pleural effusion that is moderate in size associated with some consolidation versus atelectasis. The left-sided pleural effusion that is chronic is stable and unchanged in size and appearance except for an area of abnormality at the very base which is consistent with a hematoma/clot within the pleural fluid most likely. In addition, there are three masslike lesions-two at the left lower lobe posterior lateral region and one in the right lower lobe posterior dependent region, which actually have been stable/not significantly changed compared to at least 2012 and potentially 2010. These were read as metastatic lesions potentially but I disagree. I think they are rounded atelectasis. ASSESSMENT AND RECOMMENDATIONS: 1. Acute hypoxic respiratory failure on Oxy Mask alternating with BiPAP. 2. New right pleural effusion with consolidation. 3. Recurrent atypical chest pain-? pericarditis versus pleuritis. 4. Chronic left pleural effusion with hematoma in it that is acute. 5. History of amyloidosis including pulmonary and cardiac involvement. 6. History of CLL. 7. Coronary artery disease, status post stent May 2016. This complex gentleman is here with significant hypoxia and shortness of breath. From a shortness of breath standpoint, I think his new right moderate to large pleural effusion is probably the most likely cause. We proceeded with a thoracentesis today which has a separate procedure note. The fluid was reddish-tinged and clear. We got 1800 cc of fluid out without difficulty from the right pleural space. Testing including protein, LDH, cultures, cytology, etc., are all pending at this time. From the standpoint of his masses-these have really not changed in years so I think they are unlikely to be metastatic disease, but I do not know much about workup or prior attempted biopsies of these. We are waiting on some records from the patient's oncologist, Dr. Byrne, to see if there has been any prior PET scan or other workup for these masses. Regardless they have been unchanged for years so I do not think we need to intervene at this point in this hospitalization. We started him on prednisone 30 mg daily yesterday evening to treat potential pericarditis or pleuritis. His chest pain does seems significantly improved today but I am not sure if that is the steroids. Regardless, I think we should continue this dose for at least five days total and see if he feels any better with it. I will followup tomorrow with regard to pleural fluid results.
--- NOTE | 2016-07-14 14:09 | DRSVH ---
PROCEDURE: X-RAY CHEST ONE VIEW, PORTABLE ([id number]) INDICATIONS: post-thoracentesis TECHNIQUE: One view of the chest was acquired. COMPARISON: [facility], CR, XR CHEST 1VW (PORTABLE), 07/13/2016, 5:32. FINDINGS: Surgical changes and devices: Patient is status post median sternotomy. Lungs and pleura: Consolidation and pleural effusion is redemonstrated in the left hemithorax. No pne umothorax after thoracentesis. Unchanged. Mediastinum: Mediastinal contours appear normal. Heart size is normal. Bones and chest wall: No suspicious bony lesions. Overlying soft tissues appear unremarkable. IMPRESSION: No pneumothorax after thoracentesis. Dictated by: Constance Richardson M.D. on 07/14/2016 at 14:07 Approved by: Constance Richardson M.D. on 07/14/2016 at 14:08
[2016-07-14 14:40] LABS: BFWBC 225 /mm3; MONOCYTES,BODY FLUID 44 %
[2016-07-14 14:41] LABS: OTHER CELLS,BODY FLUID 8
[2016-07-14 14:43] LABS: TOTAL PROTEIN,PLEURAL FLUID 1.1 g/dL
--- NOTE | 2016-07-14 14:52 | PCM.PROC ---
Procedure Note Date of Service: Jul 14, 2016 Pre Procedure Diagnosis: Right pleural effusion Post Procedure Diagnosis: Right pleural effusion Procedure: Right sided thoracentesis Provider and Relief Map Modeler: Attending: Dr. Tammy Weldon Resident: Dr. Ross Candelaria, PGY-2 Indication for Procedure: Acute hypoxemic respiratory failure likely secondary to new onset right sided pleural effusion Procedural Analgesia: 1% lidocaine Procedure Details: Written consent was obtained from patient prior to the procedure. Indications, risks, and benefits were explained at length. Patient agreed to proceed. Documentation of consent placed in chart. A time out was performed and the CT imaging was reviewed, bedside ultrasound was utilized to visualize the fluid collection, and determine the best site of drainage. The appropriate side, and location, was confirmed and marked. My hands were washed immediately prior to the procedure. I wore a mask with protective eyewear, and sterile gloves throughout the procedure. The patient was prepped and draped in a sterile manner using chlorhexidine scrub after the appropriate level was palpated and confirmed by ultrasound. 1% lidocaine was used to anesthesize the skin, subcutaneous tissue, superior aspect of the rib periosteum, and parietal pleura. A finder needle was then introduced over the superior aspect of the rib to locate the pleural fluid; sero-sanguinous colored fluid was aspirated. A 10-blade scalpel was used to andrea the skin at the insertion site. The thoracentesis needle was then introduced through the skin incision into the pleural space using negative aspiration pressure. The thoracentesis catheter was then threaded without difficulty. Approximately 1800ml of red-tinged serous colored fluid was removed without difficulty. The catheter was then removed. No immediate complications were noted during the procedure. Patient tolerated procedure well. A post-procedure chest x-ray did not reveal pneumothorax. The fluid will be sent for studies. Estimated blood loss is <1cc. Attending Statement I was present for and supervised the entire procedure- right-sided thoracentesis. Date of service: 07/14/16 Nat Candelaria DO Jul 14, 2016 14:52 Maday Weldon MD Jul 14, 2016 15:59
--- NOTE | 2016-07-14 15:17 | PCM.PNMED ---
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 The patient was transferred to [facility] ED due to concern about possible NSTEMI. Patient had cardiac catheterization with no new lesions seen. Currently being worked up for increasing oxygen needs. Hospital Day 6. Overnight: Tolerated BiPAP overnight. Complained of chest pain that was unresponsive to nitro and morphine. Ambien given and patient able to rest. No further complaints. Today: Patient lying in bed with BiPAP in place. Denies chest pain at this time. Plan for thoracentesis today. Remaining review of systems negative. Exam Vital Signs Vital Sign - Last Date Time Temp Pulse Resp B/P Pulse Ox O2 Delivery O2 Flow Rate FiO2 07/14/16 12:09 36.5 88 18 108/67 96 BiPAP 40 07/13/16 17:10 8.00 Intake and Output 07/13/16 07/13/16 07/14/16 Cumulative From/Thru 15:00 23:00 07:00 07/09/16 11:36 - 07/14/16 06:42 Intake Total 1155 ml 200 ml 6800 ml Output Total 775 ml 900 ml 6825 ml Balance 380 ml -700 ml -25 ml Intake Oral 620 ml 200 ml 4390 ml IV Total 535 ml 2410 ml Output Urine Total 775 ml 900 ml 6825 ml # Bowel Movements 0 0 0 Exam General: No acute distress, well developed, well nourished, appropriately interactive HEENT: Normocephalic, atraumatic. Hearing aids in place. Pupils equal, round, and reactive to light and accommodation. Moist oral mucosa. BiPAP in place. Neck: Supple with full range of motion. No jugular venous distension. Cardiovascular: Regular rate and rhythm with no rubs, or gallops appreciated. A 2/5 holosystolic murmur is appreciated best at the left sternal border. Radial pulses intact bilaterally. Pulmonary: Clear to auscultation bilaterally. Decreased air movement in lower lung murray. Normal respiratory effort with no use of accessory muscles. Abdomen: Bowel tones present. Soft, nontender. Extremities: No clubbing, cyanosis, edema, or lymphadenopathy appreciated. Skin: Normal temperature, turgor, and texture; no rash, ulcers, or subcutaneous nodules appreciated. Neurological: Cranial nerves grossly intact. Normal muscle strength, tone, and bulk. Reflexes, coordination, and sensory function within normal limits. No known gait impairment. Psychiatric: Normal mood and affect. Alert and oriented to person, place, and time. Lab and Diagnostics Result Diagram: 07/14/16 0700 07/14/16 0700 X-Rays, CTs and MRIs US VENOUS LEG DUPLEX BILATERAL IMPRESSION: No deep venous thrombosis identified within either the left or right lower extremities. Dictated by: Hamilton Narayan [facility] Interpreted: Sundar Cruz MD on 07/12/2016 at 14:43 Transcribed by: SAMMI on 07/12/2016 at 14:44 Approved by: Sundar Cruz M.D. on 07/12/2016 at 15:27 X-RAY CHEST ONE VIEW, PORTABLE IMPRESSION: Prior CABG. Chronic scarring left lung base. Right upper and lower lung pneumonia pattern is chronic distortion of the left mid and lower lung due to scarring is present and obscures visualization to the degree that definite underlying left lower lung pneumonia cannot be diagnosed. Dictated by: Herb Acosta M.D. on 07/11/2016 at 12:34 Approved by: Herb Acosta M.D. on 07/11/2016 at 12:37 Cardiac Echo Impressions Echocardiogram Report Interpretation Summary 1. Normal left ventricular size with moderately increased wall thickness and overall preserved LV systolic function. 2. Normal right ventricular size with low normal systolic function Reading Physician:02:36 PM Additional Diagnostics Angiogram IMPRESSION: 1. Widely patent graft to the obtuse marginal branch and left anterior descending artery. 2. Evidence for a patent stent in the circumflex artery, however, evidence for external plaque that appears calcified and prevented adequate expansion of the stent in the area of concern that was treated back in May 2016, however, by IVUS the relative stenosis still appears to be not significant enough to be causing his progressive symptoms. 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 The patient was transferred to [facility] ED due to concern about possible NSTEMI. Patient had cardiac catheterization with no new lesions seen. Currently being worked up for increasing oxygen needs. Hospital Day 6. 1. Acute hypoxemic respiratory failure, present on admission, active. -due to pleural effusion 07/13 suspected pneumonia -1.8L pink pleural effusion drained today 07/13/16 -started Zosyn and azithromycin today 07/14/16 -Chest xray on 07/11 revealed scarring in left lung base, pneumonia vs chronic distortion of right lung. -Oxygen requirements increased from baseline. Currently on BiPAP. -Bilateral venous duplex of lower extremities showed no DVTs. -CTA revealed pleural effusion. Plan for thoracentesis today. -Heparin drip stopped as CTA showed no PE. -Pulmonology consulted. Appreciate time and recommendations. 2. Chest pain/dyspnea, present on admission, improving. -Probably due to NSTEMI due to small vessel /distal artery, angiogram negative for major artery or stent blockage -In the setting of a complex cardiac history including cardiac amyloid and significant CAD s/p multiple stents and 3-vessel CABG 8 years ago. -Cardiac catheterization completed on 07/[address] Boyce that revealed patent stents and no new lesions. -Repeat echo unchanged from prior in May 2016. -Nitroglycerin drip stopped on 07/13. -Imdur 30 mg started 07/12. -Aspirin 81 mg daily. -Clopidogrel 75 mg daily. -Atorvastatin 40 mg daily. -Stopped: Metoprolol tartrate 25 mg twice a day. -Ranolazine 500 mg twice a day. -No ACEi due to borderline BP and no evidence of HFrEF -Cardiology following. Appreciate time and recommendations. 3. Coronary artery disease, chronic, present on admission, active. -Workup and treatment as above. 4. Cardiac, renal and pulmonary amyloidosis, chronic, present on admission, active. -Patient is followed by Dr. Dawn in [place] -Currently not under treatment 5. CLL in remission, as on admission, chronic. -Patient is followed by Dr. Dawn in [place] -Currently not under treatment 6. Hypertension, chronic, present on admission, active -Stopped: Metoprolol tartrate 25 mg BID. 7. Hyperlipidemia, chronic, present on admission, active -Statin as above. 8. Mild dementia, chronic, present on admission, active -Fall risk, nursing to monitor. 9. Aortic stenosis, chronic, present on admission, active -Not critical, outpatient follow up. 10. 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 Disposition: Patient continues with chest pain and shortness of breath. Cardiology optimizing medications. Pulmonology consulted. GI Prophylaxis: Not indicated VTE Prophylaxis: Other (heparin drip) VTE Mechanical Devices: Intermittant Pneumatic CD Resuscitation Status: DNR/DNI:Do Not Resuscitate/Intubate Attending Statement patient seen and examined with Dr Olivarez .I agree with the history,exam, impression and plan as outlined above NINA OLIVAREZ DO Jul 14, 2016 15:17 Sunday Go MD Jul 14, 2016 16:44
[2016-07-14] MEDS: Azithromycin Inj 500 MG in Dextrose 5% w/Vial Mate 250 ML IV SCH (18:21)
[2016-07-14] MEDS: HYDROcodone-APAP 5-325 mg Tablet PO PRN (20:00)
[2016-07-14] MEDS: Piperacillin-Tazo 3.375 Gm Inj 3.375 GM in Dextrose 5% Minibag Plus 50 ML IV SCH (22:06)
[2016-07-15] VITALS (13 sets, daily range): BP systolic 98–157; BP diastolic 50–81; PULSE 77–110; RESP 16–28; O2SAT 83–99
[2016-07-15] MEDS: Sodium Chloride LOK Flush 10 mL Syringe IVFLUSH SCH ×4 (00:16→23:01)
[2016-07-15] MEDS: Albuterol-Ipratropium 3 mL Inhalation Solution NEB PRN ×2 (00:29→22:47)
[2016-07-15 04:38] LABS: BASOPHILS % (AUTO) 0 % (0-3); EOSINOPHILS % (AUTO) 0 % (0-5); MONOCYTES % (AUTO) 6.7 % (4-12); Mean Corpuscular Hemoglobin 31.7 pg (27.0-35.0); Mean Corpuscular Volume 94.1 fL (81-100); NEUTROPHILS % (AUTO) 88.5 % (40-74); Platelet Count 184 bil/L (150-400)
[2016-07-15 05:24] LABS: Magnesium 2.3 mg/dL (1.6-2.6); Phosphorus 3.2 mg/dL (2.5-4.9)
[2016-07-15] MEDS: Piperacillin-Tazo 3.375 Gm Inj 3.375 GM in Dextrose 5% Minibag Plus 50 ML IV SCH ×3 (05:44→22:37)
--- NOTE | 2016-07-15 09:06 | DRSVH ---
PROCEDURE: X-RAY CHEST ONE VIEW, PORTABLE ([id number]) INDICATIONS: SOB TECHNIQUE: One view of the chest was acquired. COMPARISON: [facility], CR, XR CHEST 1VW (PORTABLE), 07/14/2016, 13:35. FINDINGS: Surgical changes and devices: Status post CABG procedure Lungs and pleura: Small left-sided pleural effusion. Increased opacification of the right lung base s uspicious for atelectasis versus pneumonia. Opacification in the left lung base is stable. Mediastinum: Mediastinal contours appear normal. Heart size is normal. Bones and chest wall: No suspicious bony lesions. Overlying soft tissues appear unremarkable. IMPRESSION: Increased opacification in the right lung base concerning for atelectasis versus pneumoni a. Please correlate clinical and laboratory data. Several otherwise stable compared to 07/14/2016. Dictated by: Rosita Mahoney MD, PhD on 07/15/2016 at 9:02 Approved by: Rosita Mahoney MD, PhD on 07/15/2016 at 9:04
[2016-07-15] MEDS: Isosorbide Mononitrate 30 mg ER24 Tablet PO SCH (09:39)
[2016-07-15] MEDS: predniSONE 20 mg Tablet PO SCH (09:39)
[2016-07-15] MEDS: Ranolazine ER 500 mg ER12 Tablet PO SCH ×2 (09:39→19:49)
[2016-07-15] MEDS: Azithromycin Inj 500 MG in Dextrose 5% w/Vial Mate 250 ML IV SCH (09:41)
--- NOTE | 2016-07-15 09:42 | PCM.PNMED ---
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 The patient was transferred to [facility] ED due to concern about possible NSTEMI. Patient had cardiac catheterization with no new lesions seen. Currently being worked up for increasing oxygen needs. Hospital Day 7. Overnight: Yesterday patient tolerated thoracentesis and 1800 mL was drained. Patient maintained O2 saturations on oxygen mask. No need for BiPAP overnight. No complaints of chest pain. Additional 12.5 mg of Seroquel given for a total 25 mg. Patient rested comfortably. Today: Patient lying comfortably in bed with oxygen mask in place. Denies chest pain, palpitations, nausea, vomiting, or dysuria. We will arrange for home oxygen upon discharge. Remaining review of systems negative. Exam Vital Signs Vital Sign - Last Date Time Temp Pulse Resp B/P Pulse Ox O2 Delivery O2 Flow Rate FiO2 07/15/16 09:08 36.6 97 16 128/75 97 OxyMask 4.00 07/14/16 12:09 40 Intake and Output 07/14/16 07/14/16 07/15/16 Cumulative From/Thru 15:00 23:00 07:00 07/09/16 11:36 - 07/15/16 05:21 Intake Total 1121 ml 786 ml 8707 ml Output Total 925 ml 250 ml 8000 ml Balance 196 ml 536 ml 707 ml Intake Oral 1121 ml 636 ml 6147 ml IV Total 150 ml 2560 ml Output Urine Total 925 ml 250 ml 8000 ml # Bowel Movements 0 Exam General: No acute distress, well developed, well nourished, appropriately interactive, oxymask in place. HEENT: Normocephalic, atraumatic. Hearing aids in place. Pupils equal, round, and reactive to light and accommodation. Moist oral mucosa. Neck: Supple with full range of motion. No jugular venous distension. Cardiovascular: Regular rate and rhythm with no rubs, or gallops appreciated. A 2/5 holosystolic murmur is appreciated best at the left sternal border. Radial pulses intact bilaterally. Pulmonary: Clear to auscultation bilaterally. Decreased air movement in lower lung murray. Normal respiratory effort with no use of accessory muscles. Abdomen: Bowel tones present. Soft, nontender. Extremities: No clubbing, cyanosis, edema, or lymphadenopathy appreciated. Skin: Normal temperature, turgor, and texture; no rash, ulcers, or subcutaneous nodules appreciated. Neurological: Cranial nerves grossly intact. Normal muscle strength, tone, and bulk. Reflexes, coordination, and sensory function within normal limits. No known gait impairment. Psychiatric: Normal mood and affect. Alert and oriented to person, place, and time. Lab and Diagnostics Result Diagram: 07/15/16 0350 07/15/16 0350 X-Rays, CTs and MRIs US VENOUS LEG DUPLEX BILATERAL IMPRESSION: No deep venous thrombosis identified within either the left or right lower extremities. Dictated by: Hamilton Narayan [facility] Interpreted: Sundar Cruz MD on 07/12/2016 at 14:43 Transcribed by: SAMMI on 07/12/2016 at 14:44 Approved by: Sundar Cruz M.D. on 07/12/2016 at 15:27 X-RAY CHEST ONE VIEW, PORTABLE IMPRESSION: Prior CABG. Chronic scarring left lung base. Right upper and lower lung pneumonia pattern is chronic distortion of the left mid and lower lung due to scarring is present and obscures visualization to the degree that definite underlying left lower lung pneumonia cannot be diagnosed. Dictated by: Herb Acosta M.D. on 07/11/2016 at 12:34 Approved by: Herb Acosta M.D. on 07/11/2016 at 12:37 Cardiac Echo Impressions Echocardiogram Report Interpretation Summary 1. Normal left ventricular size with moderately increased wall thickness and overall preserved LV systolic function. 2. Normal right ventricular size with low normal systolic function Reading Physician:02:36 PM Additional Diagnostics Angiogram IMPRESSION: 1. Widely patent graft to the obtuse marginal branch and left anterior descending artery. 2. Evidence for a patent stent in the circumflex artery, however, evidence for external plaque that appears calcified and prevented adequate expansion of the stent in the area of concern that was treated back in May 2016, however, by IVUS the relative stenosis still appears to be not significant enough to be causing his progressive symptoms. 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 The patient was transferred to [facility] ED due to concern about possible NSTEMI. Patient had cardiac catheterization with no new lesions seen. Currently being worked up for increasing oxygen needs. Hospital Day 7. 1. Acute hypoxemic respiratory failure, present on admission, active. -Due to pleural effusion 2/ CHF -1.8L pink pleural effusion drained 07/14/16,transudate on analysis -Started Zosyn and azithromycin 07/14/16 -Chest xray on 07/11 revealed scarring in left lung base, pneumonia vs chronic distortion of right lung. -Oxygen requirements increased from baseline. Currently on Oxymask. -Bilateral venous duplex of lower extremities showed no DVTs. -CTA revealed pleural effusion. Plan for thoracentesis today. -Heparin drip stopped as CTA showed no PE. -Home O2 requested to be arranged. -Pulmonology consulted. Appreciate time and recommendations. 2. Chest pain/dyspnea, present on admission, improving. -Probably due to NSTEMI due to small vessel /distal artery, angiogram negative for major artery or stent blockage -In the setting of a complex cardiac history including cardiac amyloid and significant CAD s/p multiple stents and 3-vessel CABG 8 years ago. -Cardiac catheterization completed on 07/[address] Boyce that revealed patent stents and no new lesions. -Repeat echo unchanged from prior in May 2016. -Nitroglycerin drip stopped on 07/13. -Imdur 30 mg started 07/12. -continue Aspirin 81 mg daily,Clopidogrel 75 mg daily,Atorvastatin 40 mg daily. -Stopped: Metoprolol tartrate 25 mg twice a day. -Ranolazine 500 mg twice a day. -No ACEi due to borderline BP and no evidence of HFrEF -Cardiology following. Appreciate time and recommendations. 3. Coronary artery disease, chronic, present on admission, active. -Workup and treatment as above. 4. Cardiac, renal and pulmonary amyloidosis, chronic, present on admission, active. -Patient is followed by Dr. Dawn in [facility] -Currently not under treatment 5. CLL in remission, as on admission, chronic. -Patient is followed by Dr. Dawn in [facility] -Currently not under treatment 6. Hypertension, chronic, present on admission, active -Stopped: Metoprolol tartrate 25 mg BID. 7. Hyperlipidemia, chronic, present on admission, active -Statin as above. 8. Mild dementia, chronic, present on admission, active -Fall risk, nursing to monitor. 9. Aortic stenosis, chronic, present on admission, active -Not critical, outpatient follow up. 10. 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 11. Insomnia/anxiety, present on admission, active. -Seroquel 25 mg at bedtime. Disposition: dyspnea improving after thoracentesis,continue abx ,anticipate discharge in 2-3 days GI Prophylaxis: Not indicated VTE Prophylaxis: Other (heparin drip) VTE Mechanical Devices: Intermittant Pneumatic CD Resuscitation Status: DNR/DNI:Do Not Resuscitate/Intubate Attending Statement patient seen and examined with Dr Olivarez .I agree with the history,exam, impression and plan as outlined above NINA OLIVAREZ DO Jul 15, 2016 09:42 Sunday Go MD Jul 15, 2016 12:32
--- NOTE | 2016-07-15 13:29 | PROG NOTE ---
[address] [address] PROGRESS NOTE PATIENT: TRE VERA : 1935 MR#: [id number] ADMIT: 07/09/2016 JOB ID: [id number] DATE: 07/15/2016 PULMONARY PROGRESS NOTE: The patient is an 80-year-old man with coronary artery disease, CLL and amyloidosis involving the heart and lungs seen in followup for acute hypoxic respiratory failure. INTERVAL HISTORY: He underwent an uneventful right-sided thoracentesis yesterday with removal of 1800 cc of blood-tinged fluid. See separate procedure report. He said he felt dramatically better post procedure and his oxygenation has improved, although his hypoxia has not resolved. He is down to 3 L nasal cannula from 8-10 L Oxy Mask alternating with BiPAP 40% FiO2. He did not wear his BiPAP last night. Although his chest pain initially seemed better during the day yesterday, he had recurrence of some chest pain early hours of this morning and required some morphine and nitro. Overall though, his seems to think that the severity and frequency of his chest pain has also improved slightly although not entirely resolved. REVIEW OF SYSTEMS: As above. Mild shortness of breath and chest pain. No fevers, chills. PHYSICAL EXAMINATION: Vital signs reviewed. T-max 36.4, pulse 88, respirations 16, BP 128/75, sats 98% on 3 L nasal cannula. General: Sitting up in chair eating lunch, speaking in full sentences comfortably. Chest: Clear to auscultation. Heart: Regular rate and rhythm. LABORATORIES: Reviewed. Pleural fluid analysis shows 225 WBCs, 8000 RBCs, 28% PMNs, 20% lymphs, 44% monocytes, LDH of 52, protein of 1.1, pleural glucose of 161. Cultures negative on Gram stain. All remaining cultures still pending. Post thoracentesis chest x-ray shows no pneumothorax and clear right hemidiaphragm. ASSESSMENT AND RECOMMENDATIONS: 1. Right pleural effusion-status post thoracentesis July 14 with 1800 cc removed. 2. Suspected right-sided pneumonia, healthcare associated, on antibiotics since July 14. 3. Acute hypoxic respiratory failure on Oxy Mask-improved, down to 3 L nasal cannula. 4. Chronic left pleural effusion with hematoma that is acute. 5. History of amyloidosis including pulmonary and cardiac involvement. 6. History of CLL. 7. Coronary artery disease, status post stent May 2016. 8. ? pericarditis-on prednisone x5 days. Complex gentleman here with hypoxemia which I think is predominantly due to his right pleural effusion. He underwent a thoracentesis yesterday with 1800 cc of blood-tinged fluid removed. The fluid is a transudate based on protein 1.1 and LDH of 50. This is reassuring even though cultures and cytology are still pending. I suspect this is most likely due to heart failure/volume overload. He is doing better although still on 3 L nasal cannula. I suspect he will need oxygen for home use. I do not have much else to offer to improve his symptoms or oxygenation at this point. I would encourage pulmonary toilet, activity and incentive spirometry. Continue prednisone 30 mg for a total of five days which would end on to July 18. This is for possibility of pericarditis. I would not continue it past this point. I am available for any questions over the weekend. Dr. Kirkland takes over the pulmonary service on Sunday. Please call if you would like the patient seen again. Please ask RT to do a home oxygen evaluation for the patient.
[2016-07-15] MEDS: HYDROcodone-APAP 5-325 mg Tablet PO PRN (19:50)
[2016-07-16] VITALS (12 sets, daily range): BP systolic 103–132; BP diastolic 59–83; PULSE 71–105; RESP 16–32; O2SAT 93–98
[2016-07-16 06:09] LABS: BASOPHILS % (AUTO) 0 % (0-3); EOSINOPHILS % (AUTO) 0.1 % (0-5); MONOCYTES % (AUTO) 7.4 % (4-12); Mean Corpuscular Hemoglobin 31.7 pg (27.0-35.0); Mean Corpuscular Volume 94.1 fL (81-100); NEUTROPHILS % (AUTO) 83.1 % (40-74); Platelet Count 220 bil/L (150-400)
[2016-07-16] MEDS: Piperacillin-Tazo 3.375 Gm Inj 3.375 GM in Dextrose 5% Minibag Plus 50 ML IV SCH ×3 (07:10→22:22)
[2016-07-16] MEDS: Albuterol-Ipratropium 3 mL Inhalation Solution NEB PRN (07:22)
[2016-07-16] MEDS ORDERED: Albuterol-Ipratropium 3 mL Inhalation Solution NEB ONE (07:55)
[2016-07-16] MEDS ORDERED: Furosemide 10 mg/mL 4 mL Inj IVPUSH ONE (08:00)
--- NOTE | 2016-07-16 08:10 | ABG ---
DateTimeAnalyzed 08:03:00 -_ pH ____7.433 - 7.350 7.450 pCO2 ___42.0__ -mmHg 35.0 45.0 pO2 ___78.3__ -mmHg 69.0 116 HCO3- ___27.6__ -mmol/L ABE ____3.4__ -mmol/L tHb ___11.9__ -g/dL O2Hb ___93.2__ -% COHb ____1.2__ -% MetHb ____1.0__ -% sO2 ___95.3__ -% FIO2 ___21.0__ -% Drawn By mt - Date/Time Notified____ 08:09:00 -_ Notified By MT - Notified Whom ___Dr. Donavan - B 749 -mmHg tO2 ___15.7__ -Vol% Robby test _Positive -
[2016-07-16] MEDS: Ranolazine ER 500 mg ER12 Tablet PO SCH ×2 (08:19→19:29)
[2016-07-16] MEDS: predniSONE 20 mg Tablet PO SCH (08:20)
[2016-07-16] MEDS: Isosorbide Mononitrate 30 mg ER24 Tablet PO SCH (08:21)
[2016-07-16] MEDS: Sodium Chloride LOK Flush 10 mL Syringe IVFLUSH SCH ×2 (08:22→16:30)
--- NOTE | 2016-07-16 09:24 | DRSVH ---
PROCEDURE: X-RAY CHEST ONE VIEW, PORTABLE ([id number]) INDICATIONS: 80 year-old male with dyspnea. TECHNIQUE: One view of the chest was acquired. COMPARISON: [facility], CR, XR CHEST 1VW (PORTABLE), 07/15/2016, 4:12. [facility], CR, XR CHEST 1VW (PORTABLE), 07/14/2016, 13:35. [facility], CR, XR CHEST 1VW (PORT ABLE), 07/13/2016, 5:32. FINDINGS: Surgical changes and devices: Patient is status post coronary artery bypass grafting. Lungs and pleura: Small to moderate dependent left pleural effusion is unchanged. Right basilar air s pace opacities persist. No pneumothorax. Mediastinum: Mediastinal contours appear normal. Heart size is normal. Bones and chest wall: No suspicious bony lesions. Overlying soft tissues appear unremarkable. IMPRESSION: 1. Persistent dependent right air space opacity, suspicious for aspiration or pneumonia. 2. Small to moderate dependent left pleural effusion as before, of uncertain etiology. Dictated by: Gerson Stout M.D. on 07/16/2016 at 9:21 Approved by: Gerson Stout M.D. on 07/16/2016 at 9:23
[2016-07-16] MEDS: Azithromycin Inj 500 MG in Dextrose 5% w/Vial Mate 250 ML IV SCH (10:43)
--- NOTE | 2016-07-16 12:51 | PCM.PNMED ---
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 The patient was transferred to [facility] ED due to concern about possible NSTEMI. Patient had cardiac catheterization with no new lesions seen. Currently being worked up for increasing oxygen needs, found to have a large pleural effusion s/p thoracentesis. Hospital Day 8. Overnight: Patient again complained of severe chest pain that was difficult to control and was not relieved with pain medication but eventually became relieved with nitroglycerin. The patient appeared anxious and needed frequent reorientation. Today: This morning the patient complained of severe shortness of breath and an ABG was obtained that was unremarkable. A dose of Lasix was ordered as well and the patient had relief before the dose was even completely pushed into his IV. He was started on BPAP due to symptoms and this morning states he feels well. Denies chest pain, palpitations, nausea, vomiting, or dysuria. The patient expresses concern about going home and continuing to have chest pain but would also like to be discharged. Remaining review of systems negative. Exam Vital Signs Vital Sign - Last Date Time Temp Pulse Resp B/P Pulse Ox O2 Delivery O2 Flow Rate FiO2 07/16/16 10:19 72 07/16/16 08:19 20 96 40 07/16/16 07:37 36.5 132/83 OxyMask 2.00 Intake and Output 07/15/16 07/15/16 07/16/16 Cumulative From/Thru 15:00 23:00 07:00 07/09/16 11:36 - 07/16/16 05:31 Intake Total 1240 ml 130 ml 81096 ml Output Total 1275 ml 400 ml 9675 ml Balance -35 ml -270 ml 402 ml Intake Oral 1240 ml 0 ml 7387 ml IV Total 130 ml 2690 ml Output Urine Total 1275 ml 400 ml 9675 ml # Bowel Movements 0 0 0 Exam General: No acute distress, well developed, well nourished, appropriately interactive, BPAP mask in place. HEENT: Normocephalic, atraumatic. Hearing aids in place. Pupils equal, round, and reactive to light and accommodation. Moist oral mucosa. Neck: Supple with full range of motion. No jugular venous distension. Cardiovascular: Regular rate and rhythm with no rubs, or gallops appreciated. A 2/5 holosystolic murmur is appreciated best at the left sternal border. Radial pulses intact bilaterally. Pulmonary: Clear to auscultation bilaterally. Decreased air movement in lower lung murray. Normal respiratory effort with no use of accessory muscles. Abdomen: Bowel tones present. Soft, nontender. Extremities: No clubbing, cyanosis, edema, or lymphadenopathy appreciated. Skin: Normal temperature, turgor, and texture; no rash, ulcers, or subcutaneous nodules appreciated. Neurological: Cranial nerves grossly intact. Normal muscle strength, tone, and bulk. Reflexes, coordination, and sensory function within normal limits. No known gait impairment. Psychiatric: Normal mood and affect. Alert and oriented to person, place, and time. IVs and Medications Medications Reviewed: Medications were reviewed in detail Lab and Diagnostics Result Diagram: 07/16/16 0601 07/16/16 0601 X-Rays, CTs and MRIs US VENOUS LEG DUPLEX BILATERAL IMPRESSION: No deep venous thrombosis identified within either the left or right lower extremities. Dictated by: Hamilton Narayan [facility] Interpreted: Sundar Cruz MD on 07/12/2016 at 14:43 Transcribed by: SAMMI on 07/12/2016 at 14:44 Approved by: Sundar Cruz M.D. on 07/12/2016 at 15:27 X-RAY CHEST ONE VIEW, PORTABLE IMPRESSION: Prior CABG. Chronic scarring left lung base. Right upper and lower lung pneumonia pattern is chronic distortion of the left mid and lower lung due to scarring is present and obscures visualization to the degree that definite underlying left lower lung pneumonia cannot be diagnosed. Dictated by: Herb Acosta M.D. on 07/11/2016 at 12:34 Approved by: Herb Acosta M.D. on 07/11/2016 at 12:37 Cardiac Echo Impressions Echocardiogram Report Interpretation Summary 1. Normal left ventricular size with moderately increased wall thickness and overall preserved LV systolic function. 2. Normal right ventricular size with low normal systolic function Reading Physician:02:36 PM Additional Diagnostics Angiogram IMPRESSION: 1. Widely patent graft to the obtuse marginal branch and left anterior descending artery. 2. Evidence for a patent stent in the circumflex artery, however, evidence for external plaque that appears calcified and prevented adequate expansion of the stent in the area of concern that was treated back in May 2016, however, by IVUS the relative stenosis still appears to be not significant enough to be causing his progressive symptoms. 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 The patient was transferred to [facility] ED due to concern about possible NSTEMI. Patient had cardiac catheterization with no new lesions seen. Currently being worked up for increasing oxygen needs, found to have a large pleural effusion s/p thoracentesis. Hospital Day 8. 1. Acute hypoxemic respiratory failure, present on admission, active. -Due to pleural effusion 2/2 CHF -1.8L pink pleural effusion drained 07/14/16, transudate on analysis -Started Zosyn and azithromycin 07/14/16 -Chest xray on 07/11 revealed scarring in left lung base, pneumonia vs chronic distortion of right lung. -Oxygen requirements increased from baseline. Currently on BPAP however. -Bilateral venous duplex of lower extremities showed no DVTs. -Heparin drip stopped as CTA showed no PE. -Home O2 requested to be arranged. -Pulmonology consulted, signed off at this time. Appreciate time and recommendations. -At this point it appears that the patient will have a new baseline of requiring home O2 due to either pulmonary progression of his amyloidosis or due to constrictive pericarditis. The problem with constrictive myocarditis is however that the patient is not a good candidate for myocardial biopsy. -If the patient continues to decline overnight or tomorrow in the AM consider a palliative care consultation. 2. Chest pain/dyspnea, present on admission, improving. -Probably due to NSTEMI due to small vessel /distal artery, angiogram negative for major artery or stent blockage -In the setting of a complex cardiac history including cardiac amyloid and significant CAD s/p multiple stents and 3-vessel CABG 8 years ago. -Cardiac catheterization completed on 07/[address] Boyce that revealed patent stents and no new lesions. -Repeat echo unchanged from prior in May 2016. -Nitroglycerin drip stopped on 07/13. -Imdur 30 mg started 07/12. -continue Aspirin 81 mg daily,Clopidogrel 75 mg daily,Atorvastatin 40 mg daily. -Stopped: Metoprolol tartrate 25 mg twice a day. -Ranolazine 500 mg twice a day. -No ACEi due to borderline BP and no evidence of HFrEF -Cardiology following. Appreciate time and recommendations. -To be discharged with: Imdur 30 mg, Aspirin 81 mg daily, Clopidogrel 75 mg daily, Atorvastatin 40 mg daily. Consider PRN NGT as well. 3. Coronary artery disease, chronic, present on admission, active. -Workup and treatment as above. 4. Cardiac, renal and pulmonary amyloidosis, chronic, present on admission, active. -Patient is followed by Dr. Dawn in [facility] -Currently not under treatment 5. CLL in remission, as on admission, chronic. -Patient is followed by Dr. Dawn in [facility] -Currently not under treatment 6. Hypertension, chronic, present on admission, active -Stopped: Metoprolol tartrate 25 mg BID. 7. Hyperlipidemia, chronic, present on admission, active -Statin as above. 8. Mild dementia, chronic, present on admission, active -Fall risk, nursing to monitor. 9. Aortic stenosis, chronic, present on admission, active -Not critical, outpatient follow up. 10. 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 11. Insomnia/anxiety, present on admission, active. -Seroquel 25 mg at bedtime. Disposition: It is difficult to ascertain if the patient's shortness of breath is just perception as the patient becomes more anxious without his and as looking through the nursing notes the patient becomes anxious and develops chest pain when his leaves for home. The patient can likely be discharged home tomorrow. We will attempt to see if he can tolerate being off BPAP symptomatically as his ABG was within normal limits and transition him back to MD. If the patient again deteriorates please consult palliative care. GI Prophylaxis: Not indicated VTE Prophylaxis: Other (heparin drip) VTE Mechanical Devices: Intermittant Pneumatic CD Resuscitation Status: DNR/DNI:Do Not Resuscitate/Intubate Attending Statement patient was seen with Dr Apple on 07/16/16,I agree with the history,exam, assessment and plan as outlined above . Jasmina Apple DO Jul 16, 2016 12:22 Sunday Go MD Jul 17, 2016 08:10
[2016-07-17] MEDS: Sodium Chloride LOK Flush 10 mL Syringe IVFLUSH SCH ×2 (01:05→10:53)
[2016-07-17 03:57] LABS: BASOPHILS % (AUTO) 0 % (0-3); EOSINOPHILS % (AUTO) 0.2 % (0-5); MONOCYTES % (AUTO) 8.6 % (4-12); Mean Corpuscular Hemoglobin 31.3 pg (27.0-35.0); NEUTROPHILS % (AUTO) 81.6 % (40-74); Platelet Count 240 bil/L (150-400)
[2016-07-17 04:09] VITALS: BP 108/72; PULSE 68; RESP 20; O2SAT 97
[2016-07-17] MEDS: Piperacillin-Tazo 3.375 Gm Inj 3.375 GM in Dextrose 5% Minibag Plus 50 ML IV SCH ×2 (05:46→14:35)
[2016-07-17 10:48] VITALS: BP 121/59; PULSE 85; RESP 16; O2SAT 97
[2016-07-17] MEDS: predniSONE 20 mg Tablet PO SCH (10:53)
[2016-07-17] MEDS: Isosorbide Mononitrate 30 mg ER24 Tablet PO SCH (10:53)
[2016-07-17] MEDS: Ranolazine ER 500 mg ER12 Tablet PO SCH (10:54)
[2016-07-17] MEDS: Azithromycin Inj 500 MG in Dextrose 5% w/Vial Mate 250 ML IV SCH (10:54)
[2016-07-17 12:07] VITALS: PULSE 81
[2016-07-17 12:47] VITALS: BP 97/58; PULSE 72; RESP 16; O2SAT 95
[2016-07-17] MEDS ORDERED: ISOS30TA4 PO (15:15)
--- NOTE | 2016-07-17 15:16 | PCM.DIMED ---
Lola Trujillo DO 07/17/16 1516: Discharge Instructions Date of Service Jul 17, 2016 Dates of Hospitalization Jul 09, 2016 at 12:51 Diet Heart Healthy Activity Limited until seen by PCP Call your provider Fever or Chills, Shortness of breath, Chest pain Patient Instructions Continue antibiotics by taking Augmentin and azithromycin. Take 1 tablet by mouth twice per day for 5 days, and azithromycin take 1 tablet by mouth twice per day for the first day and then once per day for days 2-5. While taking antibiotics, please take probiotics by eating yogurt or sauerkraut or other probiotics to prevent diarrhea. For chest pain, continue taking Imdur 30 mg 1 tablet by mouth daily. You can continue to use the nitroglycerin sublingual as needed for chest pain as previously described, but do not take it more than 3 times and each dose should be at least 15 minutes apart. If you use the nitroglycerin patch, then do not take Imdur. If you take Imdur, do not use the nitroglycerin patch. Continue taking atorvastatin 80 mg once daily, a baby aspirin 81 mg once daily, and clopidogrel 75 mg once daily. Follow up with Dr. Bailey within 1 weeks to discuss the chest pain that you have been having and to review your medications. Make sure you drink plenty of water throughout the day. Follow up with your primary care provider in 1-2 weeks. Follow-up Provider: Aldair Bailey MD Follow-up with PCP in: 1 week Aldair Marr MD 07/17/16 2014: Discharge Instructions Attending's Statement The patient was seen and examined together with Dr. Stoll on 07/17/2016 and I agree with the history, exam and plan as outlined in the note above. . Lola Trujillo DO Jul 17, 2016 15:16 Aldair Marr MD Jul 17, 2016 20:14
[2016-07-17] MEDS ORDERED: AZIT250T4 PO (15:20)
[2016-07-17] MEDS ORDERED: AMOX-366 PO (15:20)
--- NOTE | 2016-07-17 19:16 | PCM.DC.MED ---
Discharge Summary Date of Service Jul 17, 2016 Dates of Hospitalization Date of Hospital Admission Jul 09, 2016 at 12:51 Date of Discharge: Jul 17, 2016 Providers: Admitting Physician: Aldair Marr MD Primary Care Physician: Surjit Duque MD Attending Physician: Aldair Marr MD Diagnosis at Time of Discharge Diagnosis at Time of Discharge 1. Acute hypoxemic respiratory failure 2. Chest pain/dyspnea 3. Coronary artery disease 4. Cardiac, renal and pulmonary amyloidosis 5. CLL in remission 6. Hypertension 7. Hyperlipidemia 8. Mild dementia 9. Aortic stenosis 10. 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 Insomnia/anxiety Procedures XRay, CTs & MRIs US VENOUS LEG DUPLEX BILATERAL IMPRESSION: No deep venous thrombosis identified within either the left or right lower extremities. Dictated by: Hamilton Narayan [facility] Interpreted: Sundar Cruz MD on 07/12/2016 at 14:43 Transcribed by: SAMMI on 07/12/2016 at 14:44 Approved by: Sundar Cruz M.D. on 07/12/2016 at 15:27 X-RAY CHEST ONE VIEW, PORTABLE IMPRESSION: Prior CABG. Chronic scarring left lung base. Right upper and lower lung pneumonia pattern is chronic distortion of the left mid and lower lung due to scarring is present and obscures visualization to the degree that definite underlying left lower lung pneumonia cannot be diagnosed. Dictated by: Herb Acosta M.D. on 07/11/2016 at 12:34 Approved by: Herb Acosta M.D. on 07/11/2016 at 12:37 Cardiac Echo Impression Echocardiogram Report Interpretation Summary 1. Normal left ventricular size with moderately increased wall thickness and overall preserved LV systolic function. 2. Normal right ventricular size with low normal systolic function Reading Physician:02:36 PM Other Diagnostics Angiogram IMPRESSION: 1. Widely patent graft to the obtuse marginal branch and left anterior descending artery. 2. Evidence for a patent stent in the circumflex artery, however, evidence for external plaque that appears calcified and prevented adequate expansion of the stent in the area of concern that was treated back in May 2016, however, by IVUS the relative stenosis still appears to be not significant enough to be causing his progressive symptoms. Christa Boyce MD 07/10/16 8054 Brief History Mr. Armen Tijerina is a pleasant 80 year old gentleman with a complex medical history including CLL, amyloidosis of renal, cardiac, and pulmonary systems, and CAD s/p 3-vessel CABG and recent stent placement, that presented initially to [facility] with severe chest pain, and was transferred to [facility] for continued cardiac care with concern of STEMI. He was admitted for evaluation and treatment of NSTEMI. Pulmonology has been consulted to investigate the etiology of his acute hypoxemic respiratory failure and increasing oxygen needs. History is provided by both patient and , whom is present at bedside. Patient admits to being a poor historian. Patient and report that after stent placement 06/06/2016, he felt relatively well, and was able to complete 2 mile walks without difficulty, and without need of additional medications. He and his then fell ill for approximately one week, with 2-3 days of complete bedrest, secondary to symptoms of fatigue, myalgias, SOB, described as a 'flu-like illness.' They reported he recovered with moderate progress, but then later developed the severe chest pain that brought him into the ED at [place]. He currently reports difficulty breathing when sitting upright; relief when laying flat. Unable to tolerate upright position for prolonged periods, and limits ability to maintain adequate oral intake in one sitting. Denies any previous lung conditions. 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 That occurred during a time when he was undergoing chemotherapy for his CLL. Reports that he has chronic environmental allergies. Denies allergies to pets, medications, shellfish. Reports allergy to abalone. Current pet includes cat. No history of exposure to livestock, reptiles. 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 Reports exposure to diesel fumes, lead paint; denies any known exposures to asbestos, silicone, beryllium. Reports he completed majority of boat repairs when needed. Denies any inhaled or chewed tobacco use, or any other inhaled substances. Unaware of any known TB exposure. Travel to [place] was > 30 years ago. Reports travel to [facility] within recent year, spent 6 weeks in area. Served in [employer] and [email or web address], international travel included [employer]. Stationed in [place]. Has never required oxygen, other than post-operatively. Denies any history of similar symptoms, of prolonged SOB, increased O2 requirements, and inability to sit up without difficulty. Admits to procedure and a 3 day bedrest within recent month; no known h/o DVT/PE , did not note any unilateral swelling or redness of extremities. Reports complicated history with amyloidosis and CLL, has seen numerous specialists across the [place] he was approached with possibility of lung biopsy, but does not recall proceeding with it. Denies any history of other lung conditions/diagnoses, including asthma. Does not recall Bx completed of abnormal findings within left lung. Denies any thoracic surgery other than CABG , and thoracentesis. believes the [facility] may have records from [facility], but she agrees to search at home and bring in what she could find. She also does not recall any lung biopsies being completed in his medical history. Oncologist: Eliezer Her Recently evaluated by [facility] Skydiving Instructor: Dr. Bailey Has been seen by [facility] for amyloidosis work up and care Hospital Course 1. Acute hypoxemic respiratory failure, present on admission, improved. -Due to pleural effusion secondary to CHF -1.8L pink pleural effusion drained 07/14/16, transudate on analysis -Started Zosyn and azithromycin IV on 07/14/16 -Chest xray on 07/11 revealed scarring in left lung base, pneumonia vs chronic distortion of right lung. -Oxygen requirements increased from baseline. -Bilateral venous duplex of lower extremities showed no DVTs. -Heparin drip stopped as CTA showed no PE. -Pulmonology consulted, signed off. -At this point it appears that the patient will have a new baseline of requiring home O2 due to either pulmonary progression of his amyloidosis or due to constrictive pericarditis. The problem with constrictive myocarditis is that the patient is not a good candidate for myocardial biopsy. 2. Chest pain/dyspnea, present on admission, improving. -Probably due to NSTEMI due to small vessel /distal artery, angiogram negative for major artery or stent blockage -In the setting of a complex cardiac history including cardiac amyloid and significant CAD s/p multiple stents and 3-vessel CABG 8 years ago. -Cardiac catheterization completed on 07/[address] Boyce that revealed patent stents and no new lesions. -Repeat echo unchanged from prior in May 2016. -Nitroglycerin drip stopped on 07/13/2016. -Imdur 30 mg started on 07/12/2016. -Continued Aspirin 81 mg daily,Clopidogrel 75 mg daily,and Atorvastatin 40 mg daily. -Stopped: Metoprolol tartrate 25 mg twice a day. -Continued Ranolazine 500 mg twice a day. -No ACEi due to borderline BP and no evidence of HFrEF -Cardiology consulted and signed off. -Discharged with Imdur 30 mg, Aspirin 81 mg daily, Clopidogrel 75 mg daily, Atorvastatin 80 mg daily, and as needed nitroglycerin as well. 3. Coronary artery disease, chronic, present on admission, active. -Workup and treatment as above. 4. Cardiac, renal and pulmonary amyloidosis, chronic, present on admission, active. -Patient is followed by Dr. Dawn in [facility] -Currently not under treatment 5. CLL in remission, as on admission, chronic. -Patient is followed by Dr. Dawn in [facility] -Currently not under treatment 6. Hypertension, chronic, present on admission, active -Stopped: Metoprolol tartrate 25 mg BID. 7. Hyperlipidemia, chronic, present on admission, active -Statin therapy continued as above. 8. Mild dementia, chronic, present on admission, active 9. Aortic stenosis, chronic, present on admission, active -Not critical and patient is to have outpatient follow up. 10. 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 11. Insomnia/anxiety, present on admission, active. -Continued Seroquel 25 mg at bedtime. Exam Vital Signs (Last) Date Time Temp Pulse Resp B/P Pulse Ox O2 Delivery O2 Flow Rate FiO2 07/17/16 12:47 36.3 72 16 97/58 95 Room Air 07/17/16 04:09 2.00 07/16/16 08:19 40 Exam General: No acute distress, well developed, thin, appropriately interactive HEENT: Normocephalic, atraumatic. Hearing aids in place. Pupils equal, round, and reactive to light and accommodation. Moist oral mucosa. Neck: Supple with full range of motion. No jugular venous distension. Cardiovascular: Regular rate and rhythm with no rubs, or gallops appreciated. A 2/5 holosystolic murmur is appreciated best at the left sternal border. Radial pulses intact bilaterally. Pulmonary: Clear to auscultation bilaterally. Decreased air movement in lower lung murray. Normal respiratory effort with no use of accessory muscles. Abdomen: Bowel tones present. Soft, nontender. Extremities: No clubbing, cyanosis, edema, or lymphadenopathy appreciated. Skin: Normal temperature, turgor, and texture; no rash, ulcers, or subcutaneous nodules appreciated. Neurological: Cranial nerves grossly. Reflexes, coordination, and sensory function within normal limits. No known gait impairment. Psychiatric: Normal mood and affect. Alert and oriented to person, place, and time. Test 07/09/16 18:05 07/10/16 03:35 07/10/16 05:35 07/11/16 14:05 Thyroid Stimulating Hormone (TSH) 2.420uIU/mL (0.450-4.500) Urine Color Yellow (YELLOW) Urine Appearance Clear (CLEAR,HAZY) Urine pH 5.5 (5.0-8.0) Urine Specific Boaz 1.020 (1.003-1.035) Urine Protein Negativemg/dL (NEG,TRACE) Urine Glucose (UA) Negativemg/dL (NEGATIVE) Urine Ketones Negativemg/dL (NEGATIVE) Urine Occult Blood Small (NEGATIVE) Urine Nitrite Negative (NEGATIVE) Urine Bilirubin Negative (NEGATIVE) Urine Urobilinogen Normalmg/dL (NORMAL) Urine Leukocyte Esterase Negative (NEGATIVE) Urine RBC 3-10/hpf (0-2) Urine WBC 0-5/hpf (0-5) Urine Epithelial Cells Occasional/hpf (NONE-MOD) Urine Crystals None seen (NONE SEEN) Urine Bacteria None/hpf (NONE-FEW) Urine Hyaline Casts None/lpf (NONE) Urine Granular Casts None seen (NONE SEEN) Urine Waxy Casts None seen (NONE SEEN) Urine Red Blood Cell Casts None seen (NONE SEEN) Urine White Blood Cell Casts None seen (NONE SEEN) Urine Mucus None seen (None Seen) Urine Trichomonas None seen (NONE SEEN) Urine Yeast None (NONE SEEN) Urine Culture Reflexed Not indicated Hemoglobin A1c 5.5% (4.8-5.6) Total Creatine Kinase 58U/L (21-232) Creatine Kinase MB 3.3ng/mL (0.0-10.4) Creatine Kinase MB % % (0.0-5.0) Triglycerides Level 48mg/dL (0-149) Cholesterol Level 110mg/dL (100-199) LDL Cholesterol, Calculated 51.400mg/dL (0-99) VLDL Cholesterol 9.600mg/dL HDL Cholesterol 49mg/dL (>39) Cholesterol/HDL Ratio 2.24 (0.0-4.4) Pro-B-Type Natriuretic Peptide 5882pg/mL (0-486) Test 07/12/16 11:50 07/14/16 10:47 07/14/16 13:52 07/15/16 03:50 D-Dimer 1.5mg/L (<0.50) Prothrombin Time 10.6sec (8.1-12.5) Prothromb Time International Ratio 0.99ratio Activated Partial Thromboplast Time 25.7sec (22.8-33.0) Lactate Dehydrogenase 404U/L (100-190) Body Fluid Source Pleural fluid Body Fluid Color [place] (Clear) Body Fluid Appearance Hazy Body Fluid WBC 225/mm3 Body Fluid RBC 8325/mm3 Body Fluid Polynuclear WBCs 28% Body Fluid Lymphocytes 20% Body Fluid Monocytes 44% Body Fluid Eosinophils 0% Body Fluid Basophils 0% Body Fluid Lactate Dehydrogenase 52U/L Pleural Fluid Total Protein 1.1g/dL Pleural Fluid Glucose 161mg/dL Phosphorus Level 3.2mg/dL (2.5-4.9) Magnesium Level 2.3mg/dL (1.6-2.6) Test 07/16/16 06:01 07/17/16 03:30 Troponin T 0.218ug/L (0.0-0.011) Procalcitonin 0.10ng/mL (0.00-0.08) White Blood Count 9.2th/mm3 (3.8-10.1) Red Blood Count 3.67mil/mm3 (4.40-5.80) Hemoglobin 11.5g/dL (13.8-17.2) Hematocrit 34.5% (41.0-50.0) Mean Corpuscular Volume 94.0fL (81-100) Mean Corpuscular Hemoglobin 31.3pg (27.0-35.0) Mean Corpuscular Hemoglobin Concent 33.3% (32.0-37.0) Red Cell Distribution Width 13.8% (12.3-15.4) Platelet Count 240bil/L (150-400) Neutrophils (%) (Auto) 81.6% (40-74) Lymphocytes (%) (Auto) 8.8% (14-46) Monocytes (%) (Auto) 8.6% (4-12) Eosinophils (%) (Auto) 0.2% (0-5) Basophils (%) (Auto) 0% (0-3) Sodium Level 137mEq/L (134-144) Potassium Level 5.1mEq/L (3.5-5.2) Chloride Level 97mEq/L (97-108) Carbon Dioxide Level 26mmol/L (18-29) Blood Urea Nitrogen 42mg/dL (8-27) Creatinine 1.18mg/dL (0.76-1.27) Estimat Glomerular Filtration Rate 63mL/min (>59) Glucose Level 110mg/dL (60-99) Calcium Level 8.5mg/dL (8.5-10.1) Total Bilirubin 0.8mg/dL (0.0-1.2) Aspartate Amino Transf (AST/SGOT) 38U/L (0-50) Alanine Aminotransferase (ALT/SGPT) 47U/L (0-44) Alkaline Phosphatase 89U/L (25-160) Total Protein 5.6g/dL (6.4-8.4) Albumin 3.3g/dL (3.4-5.0) Discharge Medications Discharge Medications Acetylcarnitine (Acetyl l-Carnitine) 500 Mg Capsule 500 MG PO DAILY (Reported) Amlodipine (Amlodipine) 10 Mg Tablet 10 MG PO DAILY (Reported) Amoxicillin/Clav K 875-125 mg (Augmentin 875-125 mg) 1 Each Tablet 1 TABLET PO BID Prescribed by: MATT TRUJILLO DO Aspirin (Aspirin) 81 Mg Tablet 81 MG PO DAILY (Reported) Atorvastatin Calcium (Atorvastatin Calcium) 80 Mg Tablet 80 MG PO DAILY ( Reported) Azithromycin (Zithromax (Z-Vega)) 250 Mg Tablet 250 MG PO DIRECTED Take two tablets by mouth on day 1, then take one tablet daily on days 2 through 5. Prescribed by: MATT TRUJILLO DO Calcium Citrate (Calcium Citrate) 250 Mg Tablet 250 MG PO BID (Reported) Cholecalciferol (Vitamin D3) (Vitamin D3) 400 Unit Tablet 400 UNIT PO BID ( Reported) Clopidogrel (Clopidogrel) 75 Mg Tablet 75 MG PO DAILY Prescribed by: DIANNE MOJICA Famotidine (Famotidine) 20 Mg Tablet 20 MG PO HS (Reported) Isosorbide MN ER (Isosorbide MN ER) 30 Mg Tab.er.24h 30 MG PO DAILY Prescribed by: MATT TRUJILLO DO Magnesium Oxide (Uromag) 84.5 Mg Capsule 84.5 MG PO DAILY (Reported) Nitroglycerin 0.6 mg/hr Patch (Nitroglycerin 0.6 mg/hr Patch) 1 Each Patch 1 PATCH TRANSDERM DAILY (Reported) Ranolazine ER (Ranexa) 500 Mg Tablet.er 500 MG PO BID (Reported) As needed Nitroglycerin SL (Nitrostat) 0.4 Mg Tab.subl 0.4 MG SL DIRECTED PRN PRN For Chest Pain Prescribed by: BJORN PRABHAKAR DO Followup Plan Discharge Diet: Heart Healthy Discharge Activity: Limited until seen by PCP Patient Instructions Continue antibiotics by taking Augmentin and azithromycin. Take 1 tablet by mouth twice per day for 5 days, and azithromycin take 1 tablet by mouth twice per day for the first day and then once per day for days 2-5. While taking antibiotics, please take probiotics by eating yogurt or sauerkraut or other probiotics to prevent diarrhea. For chest pain, continue taking Imdur 30 mg 1 tablet by mouth daily. You can continue to use the nitroglycerin sublingual as needed for chest pain as previously described, but do not take it more than 3 times and each dose should be at least 15 minutes apart. If you use the nitroglycerin patch, then do not take Imdur. If you take Imdur, do not use the nitroglycerin patch. Continue taking atorvastatin 80 mg once daily, a baby aspirin 81 mg once daily, and clopidogrel 75 mg once daily. Follow up with Dr. Bailey within 1 weeks to discuss the chest pain that you have been having and to review your medications. Make sure you drink plenty of water throughout the day. Follow up with your primary care provider in 1-2 weeks. Follow-up Provider: Aldair Bailey MD Follow-up with PCP in: 1 week Time spent Greater than 30 minutes was spent in preparation of discharge with greater than 50% of that time dedicated to patient counseling and coordination of care. . Attending Statement The patient was seen and examined together with Dr. Trujillo on 07/17/2016 and I agree with the history, exam and plan as outlined in the note above. . copies to: Surjit Duque MD; ERICKSON WATSON MD; Aldair Bailey MD, Marissa L DO Jul 17, 2016 19:15 Aldair Marr MD Jul 18, 2016 07:29
--- NOTE | 2016-07-20 09:13 | PATH ---
SURGICAL PATHOLOGY Attending Physician:Maday Weldon MD CASE STATUS: Signed Out PATIENT NAME: TRE VERA PID: [id number] : 1935 DATE COLLECTED:07/14/2016 00:00 SPECIMEN: Pleural fluid thin prep CLINICAL HISTORY: Pleural Fluid No ICD-10 code given FINAL DIAGNOSIS: PLEURAL FLUID: NEGATIVE FOR MALIGNANT CELLS. ICD10 CODE J90 GROSS DESCRIPTION: Received fresh on 07/18/2016 is approximately 900 cc of cloudy yellow fluid. Prepared are one cell block, one cytospin, and one ThinPrep slides. hk ICD-9 CODES: CPT CODES: 1: 41570, 37427, 76617 Electronically Signed Out Sofía Bangura MD [facility] Pathology [facility] [address], [place] [address] Technical component performed at [facility], [facility] [address], [place], [address]
== END 2016-07-17 16:40 | disposition home health service (06) | DRG 280 ==
LOC: SED 11:34 → PCC 12:51 → OBSVTOIN 12:51 → PCC 13:01 → CCU 07-10 19:02 → PCC 07-11 05:21
PROVIDERS: ADMIT Internal Medicine; ATTEND Internal Medicine
PROC: B2181ZZ Fluoroscopy of Left Internal Mammary Bypass Graft using Low Osmolar Contrast (ICD-10-PCS; principal; 2016-07-10)
PROC: B2111ZZ Fluoroscopy of Multiple Coronary Arteries using Low Osmolar Contrast (ICD-10-PCS; 2016-07-10)
PROC: B240ZZ3 Ultrasonography of Single Coronary Artery, Intravascular (ICD-10-PCS; 2016-07-10)
PROC: 5A09357 Assistance with Respiratory Ventilation, Less than 24 Consecutive Hours, Continuous Positive Airway Pressure (ICD-10-PCS; 2016-07-12)
PROC: 0W993ZX Drainage of Right Pleural Cavity, Percutaneous Approach, Diagnostic (ICD-10-PCS; 2016-07-14)
PROC: 4A033R1 Measurement of Arterial Saturation, Peripheral, Percutaneous Approach (ICD-10-PCS; 2016-07-16)
DX: I21.4 Non-ST elevation (NSTEMI) myocardial infarction (principal); J96.01 Acute respiratory failure with hypoxia; E85.4 Organ-limited amyloidosis; I43 Cardiomyopathy in diseases classified elsewhere; C91.11 Chronic lymphocytic leukemia of B-cell type in remission; J99 Respiratory disorders in diseases classified elsewhere; I25.10 Atherosclerotic heart disease of native coronary artery without angina pectoris; I10 Essential (primary) hypertension; Z95.1 Presence of aortocoronary bypass graft; E78.5 Hyperlipidemia, unspecified; Z95.5 Presence of coronary angioplasty implant and graft; F03.90 Unspecified dementia, unspecified severity, without behavioral disturbance, psychotic disturbance, mood disturbance, and anxiety; Z86.718 Personal history of other venous thrombosis and embolism; Z66 Do not resuscitate; Z79.02 Long term (current) use of antithrombotics/antiplatelets; G47.00 Insomnia, unspecified; F41.9 Anxiety disorder, unspecified; I50.9 Heart failure, unspecified